=== PATIENT | female | born 1970 | race Caucasian/White ===

== ENCOUNTER 2016-12-06 11:09 | Outpatient (CLI) | payer BC ==
--- NOTE | 2016-12-06 17:32 | PET ---
PET CT: HISTORY: 46-year-old female with colorectal carcinoma, diagnosed in July 2016. Patient had surgery on 08/16/16 and two series of chemotherapy, last session on 11/24/16. Exam requested for restaging. TECHNIQUE: PET scanning with CT attenuation correction was performed from the base of the brain to the proximal thighs following the intravenous administration of 10 mCi F18-FDG in the right antecubital fossa. I maging was performed after an uptake interval of 55 minutes. COMPARISON: None. FINDINGS: There are multiple hypermetabolic foci in the liver with maximum SUV of 13.3 in the right lobe and 9 in the left lobe. Multiple pulmonary nodules are seen in the lungs on the CT scan used for attenuation correction. Mos t of these are less than 1.0 cm. The 1.0 cm nodule is in the left lower lobe and demonstrates hyperm etabolic activity with a SUV of 3.2. The remainder of the pulmonary nodules are not hypermetabolic. No joe hypermetabolism is seen in the neck, chest, abdomen, or pelvis. No hypermetabolic adrenal o r skeletal lesions are seen. There is physiologic activity in the GI and tracts, and the visualized portions of the brain. The CT scan used for attenuation correction demonstrates no evidence of pleural effusions or ascites . There are calcified gallstones and a left lower quadrant colostomy. IMPRESSION: Multiple liver and pulmonary metastases. POS: ROSIE
== END 2016-12-06 11:10 | disposition home or self-care (01) ==
LOC: PET 11:09
PROVIDERS: ATTEND Internal Medicine Hematology & Oncology
DX: C20 Malignant neoplasm of rectum (principal); C78.7 Secondary malignant neoplasm of liver and intrahepatic bile duct; C78.00 Secondary malignant neoplasm of unspecified lung
CPT/HCPCS: 78815; A9552

== ENCOUNTER 2017-04-13 07:48 | Outpatient (CLI) | payer BC ==
--- NOTE | 2017-04-13 11:52 | CT ---
CT OF THE ABDOMEN AND PELVIS WITH IV AND ENTERIC CONTRAST: HISTORY: History of sigmoid colon neoplasm. COMPARISON: CT images from a PET CT evaluation from the [facility], dated 12/06/2016. TECHNIQUE: Multiple CT images were obtained of the abdomen and pelvis with IV and enteric contrast. The patient has a history of a colostomy and port placement. The patient reportedly had prior CT evaluations in [place]. None of these comparisons are available. The patient is currently undergoing chemother apy. FINDINGS: There are bilateral lung base pulmonary nodules. One of the largest is seen within left lower lobe, on image 6 of series 2, measuring 1.5 cm. This lesion measured approximately 1 cm on the comparison PET CT evaluation. There is now an area of central cystic change seen within the nodule. An additio nal 8 mm pulmonary nodule is seen within the left lower lobe, where previously this measured 1 cm. T here is a 5 mm pulmonary nodule within the right lower lobe, which is stable. No new pulmonary nodul e is evident. There are numerous hypodense masses involving the liver, consistent with hepatic metastatic disease. The largest is seen within segment 6 of the right hepatic lobe, on image 25 of series 2, measuring 6 .7 x 4.9 cm. It is difficult to compare the size of the hepatic metastatic lesions due to the PET CT evaluation being without IV contrast and with associated beam hardening artifact. Numerous hepatic lesions appear slightly smaller than on the comparison noncontrast PET exam. The pancreas and spleen appear within normal limits. The adrenal glands appear within normal limits. No focal renal lesion is evident. There has been interval development of prominent pericolonic wall thickening involving the left lower quadrant ostomy, as well as portions of the descending colon. A mild amount of retained stool is se en within the transverse colon. The small bowel is of normal caliber. The bladder appears within no rmal limits. There is some wall thickening involving the superior aspect of Kendrick pouch, best see n on image 75 of series 2 and image 97 of the coronal series. There are some shotty appearing perire ctal lymph nodes present. There is some inflammatory type infiltration in the perirectal fat. There is some fluid and gas density seen within the expected excluded rectal vault. The sclerotic lesion involving the proximal left femur is stable. There is scattered degenerative an d osteoarthritic change. IMPRESSION: 1. The index nodule within the left lower lobe on the comparison PET CT has increased in size but no w has an area of central necrosis or cavitation. The additional left lower lobe pulmonary nodule has decreased in size, measuring 8.5 mm, where it previously measured 1 cm. The right lower lobe pulmon tawanna nodule is stable. It is difficult to compare the hepatic metastatic disease on this contrast enh anced exam to that of the noncontrast PET CT evaluation, but it appears that the hepatic metastatic d isease is slightly less prominent. Overall findings may reflect sequelae of response to therapy. Sh ort-term CT followup (1-2 months) may be helpful to confirm these findings. 2. Prominent wall thickening involving the left lower quadrant sigmoid end colostomy and descending colon is suspicious for colitis. 3. Prominent circumferential wall thickening involving the superior aspect of Kendrick pouch. This would be concerning for recurrent disease. Would recommend consideration for repeat PET CT evaluatio n of this region. Alternatively, a sigmoidoscopy may be helpful to evaluate the pouch. There is ghassan e fluid and gas accumulation within the rectal pouch, which could be related to exudate from the muco sa; however, discharge from recurrent mass cannot be entirely excluded. CODE T POS: ROSIE
[2017-04-13] MEDS ORDERED: Iopamidol 370 76% 100 ML VIAL ONE (13:00)
[2017-04-13] MEDS ORDERED: Iopamidol 370 76% 50 ML VIAL FS ONE (13:00)
== END 2017-04-13 07:49 | disposition home or self-care (01) ==
LOC: CT 07:48
PROVIDERS: ATTEND Internal Medicine Hematology & Oncology
DX: C18.7 Malignant neoplasm of sigmoid colon (principal); C78.6 Secondary malignant neoplasm of retroperitoneum and peritoneum; R91.8 Other nonspecific abnormal finding of lung field; Z98.890 Other specified postprocedural states
CPT/HCPCS: 74177

== ENCOUNTER 2017-06-08 08:15 | Outpatient (CLI) | payer BC ==
--- NOTE | 2017-06-08 12:01 | PET ---
PET CT: HISTORY: 47-year-old female with colorectal/sigmoid colon cancer. Last chemotherapy was in April 2017. Exam requested for restaging. TECHNIQUE: PET scanning with CT attenuation correction was performed from the base of the brain through the prox imal thighs following the intravenous administration of 11.7 mCi F18-FDG in the right antecubital fos sa. Imaging was performed after an uptake interval of 46 minutes. COMPARISON: PET CT dated 12/06/16. CORRELATION: CT abdomen and pelvis dated 04/13/17. FINDINGS: Multiple hypermetabolic foci in the liver are again noted with interval increase in number and size s jason the last exam. Multiple pulmonary nodules are again seen in the lungs on the CT scan used for attenuation correction . None of these demonstrate abnormal FDG localization. The largest of these in the left lower lobe pr eviously measured 1.0 cm and demonstrated FDG localization. This currently measures 1.5 cm, but demon strates no abnormal FDG localization. No joe hypermetabolism is seen in the neck, chest, abdomen, or pelvis. No hypermetabolic adrenal or skeletal lesions are identified. There is a segment of intense uptake in the superior aspect of the Kendrick's pouch in the pelvis wit h a SUV of 10. There is physiologic activity in the GI tract and visualized portions of the brain. The CT scan used for attenuation correction demonstrates no evidence of pleural effusions or ascites. The calcified gallstones and left lower quadrant colostomy are again seen. IMPRESSION: 1. Mixed response to therapy since 12/06/16. 2. Hypermetabolic activity in the superior aspect of Kendrick's pouch may represent recurrence. Endo scopic evaluation is recommended. POS: ROSIE
== END 2017-06-08 08:16 | disposition home or self-care (01) ==
LOC: PET 08:15
PROVIDERS: ATTEND Internal Medicine Hematology & Oncology
DX: C19 Malignant neoplasm of rectosigmoid junction (principal)
CPT/HCPCS: 78815; A9552

== ENCOUNTER 2017-08-04 00:10 | Inpatient (IN) | payer BC ==
[2017-08-04 01:04] LABS: #Lymphocytes 1.7 thou/uL (1.20-3.40); #Monocytes 0.3 thou/uL (0.11-0.59); #Neutrophils 10.1 thou/uL (1.40-6.50); %Eosinophils 0.2 % (0.0-10.0); %Lymphocytes 13.7 % (21.0-51.0); %Monocytes 2.7 % (0.0-10.0); %Neutrophils 83.4 % (42.0-75.0); Hemoglobin 11.5 g/dL (12.0-16.0); Mean Corpuscular HGB CONC 30.8 g/dL (32.0-36.0); Mean Corpuscular Hemoglobin 29.4 pg (27.0-31.0); Mean Corpuscular Volume 95.4 fl (81.0-99.0); Mean Platelet Volume 6.6 fL (7.4-10.4); Platelet Count 470 thou/uL (130-400); RBC Distribution Width 17.8 % (11.5-14.5); Red Blood Cell (RBC) Count 3.91 mill/uL (4.20-5.40); White Blood Cell (WBC) Count 12.1 thou/uL (4.8-10.8)
[2017-08-04 01:14] LABS: ALT (SGPT) 35 U/L (8-55); AST (SGOT) 79 U/L (5-34); Albumin 2.9 g/dL (3.5-5.0); Alkaline Phosphatase 207 U/L (40-150); Anion Gap 14 mmol/L (10-20); BUN (Urea Nitrogen) 14 mg/dL (7.0-18.7); Bilirubin, Total 0.4 mg/dL (0.2-1.2); Calc. Creatinine Clearance 0 mL/min (70-130); Carbon Dioxide 25 mmol/L (22-29); Chloride 103 mmol/L (98-107); Estimated GFR-MDRD 89; Globulin 5.2 g/dL (2.4-3.5); Glucose 133 mg/dL (70-105); Potassium 4.2 mmol/L (3.5-5.1); Protein, Total 8.1 g/dL (6.0-8.3); Sodium 138 mmol/L (136-145)
[2017-08-04 02:07] LABS: Bilirubin Negative (Negative); Blood, Urine Negative (Negative); Clarity CLEAR (Clear); Glucose, Urine (Dipstick) Negative (Negative); Leukocyte Small (Negative); Nitrite Negative (Negative); Protein, Urine (Dipstick) Negative (Neg-Trace); Specific Gravity, Urine 1.026 (1.002-1.036)
[2017-08-04 02:17] LABS: Bacteria/HPF None Seen HPF (None Seen); Hyaline Casts/LPF NONE SEEN LPF (0-3 Hyaline); Other Microscopic Description Less than 2 mL rec'd; RBC/HPF 0-3 HPF (0-3); Squamous Epithelial 0-3 HPF (0-3); WBC/HPF 0-3 HPF (0-3)
[2017-08-04] MEDS ORDERED: Piperacillin/Tazobactam 4.5 GM VIAL ONE (02:25)
[2017-08-04] MEDS ORDERED: Acetaminophen 325 MG TAB ONE (04:18)
[2017-08-04 04:56] LABS: Lactic Acid 2.1 mmol/L (0.5-2.2)
--- NOTE | 2017-08-04 07:57 | RAD ---
CHEST 2 VIEWS: HISTORY: Fever. On chemotherapy. COMPARISON: Chest radiograph 2017. FINDINGS: Port catheter tip in the superior SVC. There is a well-defined nodule in the left lower lobe measuri ng 14 mm and suggesting a metastatic focus. Smaller left lower lobe pulmonary nodule is present. Co ncern for possible developing nodules in the right upper lobe. No focal airspace consolidation, pneumothorax, or effusion. IMPRESSION: Findings concerning for worsening pulmonary metastatic disease. POS: RADHIKAH
--- NOTE | 2017-08-04 08:46 | CT ---
PRELIMINARY REPORT/[facility]/EMERGENTY AFTER-HOURS PROCEDURE CT Abdomen and Pelvis With Intravenous Contrast EXAM DATE/TIME: Exam ordered 08/04/2017 4:57 AM CLINICAL HISTORY: 47 years old, female; Signs and symptoms; Fever; Patient HX: 47 y/o f with colon cancer S/P tumor res ection undergoing chemotherapy presents with fever. She had a 103 temp monday and her cancer dr place d her on cipro. She spiked a fever againg yesterday and it has persisted today, measuring 100 at home. She does have associated generalized weakness in which her mother states she drifts "in and out" and is very loopy tonight. Also has back pain and possible flank pain. Has apt with urology for recurrent uti's tomorrow. Has colostomy bag, but has been passing feces through her rectum also. Only has mild associated abdominal pain currently. A&o x3. TECHNIQUE: Axial computed tomography images of the abdomen and pelvis with intravenous contrast. Coronal reforma tted images were created and reviewed. COMPARISON: No relevant prior studies available. FINDINGS: Lung bases: There are diffuse lung metastases. ABDOMEN: Liver: There are diffuse metastases throughout the liver. Gallbladder and bile ducts: There is cholelithiasis with nonspecific gallbladder wall haziness. No du ctal dilation. Pancreas: The pancreas appears normal. No ductal dilation. Spleen: The spleen is normal. Adrenals: The adrenal glands are normal. Kidneys and ureters: The kidneys appear normal. No hydronephrosis. Stomach and bowel: The duodenum is unremarkable. There is a LEFT lower quadrant colostomy. No obstruction. No mucosal thickening. PELVIS: Appendix: No findings to suggest acute appendicitis. Bladder: The bladder is normal. Reproductive: The uterus is normal. ABDOMEN and PELVIS: Intraperitoneal space: Normal. No free air. No significant fluid collection. Bones/joints: No acute fracture. No dislocation. Soft tissues: Normal. Vasculature: Normal. No abdominal aortic aneurysm. Lymph nodes: Normal. No enlarged lymph nodes. IMPRESSION: 1. There is cholelithiasis with nonspecific gallbladder wall haziness. If acute cholecystitis suspect ed an ultrasound may be performed for further evaluation. 2. Diffuse liver and lung metastases. Thank you for allowing us to participate in the care of your patient. Dictated and Authenticated by: Kevin Liriano MD 08/04/2017 5:30 AM Central Time ([place] & [place]) FINAL REPORT CT ABDOMEN AND PELVIS WITH IV AND ORAL CONTRAST: DATE: 08/04/17. TIME: Performed on an emergency basis at 0501 hours. HISTORY: Worsening abdominal pain. Metastatic colon cancer. COMPARISON: 04/13/17. FINDINGS: Findings agree with the preliminary report by Dr. Porter from [facility]. Inflammation of the gallbladder is suspected with gallstones confirmed. Clinical correlation regarding other signs and symptoms of acute cholecystitis is required. Postoperative changes are again demonstrate. There has been significant worsening of metastatic disease of the lung bases and liver. POS: ROSIE
[2017-08-04] MEDS ORDERED: FLUoxetine HCl 20 MG CAP PO SCH (09:00)
[2017-08-04] MEDS: cefTRIAXone\\ROCEPHIN 1 GM in Sodium Chloride 0.9% 100 ML IVPB SCH (09:56)
[2017-08-04] MEDS: Enoxaparin Sodium 30 MG/0.3 ML SYRINGE SC SCH (09:57)
[2017-08-04] MEDS: ALPRAZolam 1 MG TAB PO SCH ×2 (10:07→21:43)
[2017-08-04 10:08] VITALS: BMI 26.6
[2017-08-04] MEDS ORDERED: ISOVUE-370 76%-LOCM 1 ML ONE (11:13)
--- NOTE | 2017-08-04 14:25 | PDOC.PN ---
- Subjective Encounter Start Date: 08/04/17 Encounter Start Time: 14:22 Ms. Lugo was seen in follow-up of fever. She currently admits to some mild abdominal discomfort. - Objective Resuscitation Status: Resuscitation Status FULL:Full Resuscitation MAR Reviewed: Yes Vital Signs & Weight: Vital Signs (12 hours) Temp Pulse Resp BP Pulse Ox 08/04/17 11:45 98.4 F 89 20 95/53 L 93 L 08/04/17 10:34 99.0 F 94 20 96 08/04/17 09:30 99.0 F 94 20 98/62 96 Weight Weight 160 lb 8 oz Result Diagrams: 08/04/17 00:43 08/04/17 00:43 Phys Exam - Physical Examination HEENT: PERRLA Respiratory: no wheezing, no rales, no rhonchi, clear to auscultation bilateral Cardiovascular: RRR, no significant murmur, no rub Gastrointestinal: soft + mild right upper quandrant tenderness Musculoskeletal: no edema, pulses present Neurological: non-focal Dx/Plan (1) Fever Code(s): R50.9 - FEVER, UNSPECIFIED Status: Acute (2) Colon cancer metastasized to liver Code(s): C18.9 - MALIGNANT NEOPLASM OF COLON, UNSPECIFIED; C78.7 - SECONDARY MALIG NEOPLASM OF LIVER AND INTRAHEPATIC BILE DUCT Status: Acute (3) Bipolar disorder Code(s): F31.9 - BIPOLAR DISORDER, UNSPECIFIED Status: Acute - Plan * Fever- ? etiology- discussed with Oncology and General Surgery- CT scan findings were noted, and will consult Surgery to evaluate for acute cholecystitis. * Colon cancer stage 4- she is being actively treated * Will continue Rocephin in the interim
--- NOTE | 2017-08-04 16:03 | CON ---
DATE OF CONSULTATION: 08/04/2017 REASON FOR CONSULTATION: Colon cancer. HISTORY OF PRESENT ILLNESS: Ms. Lugo is a pleasant 47-year-old female with metastatic colon cancer w ho over the last 3 weeks has been struggling with a fever as high as 103. She had some urinary compl aints initially and was treated with Cipro. However, all her urine cultures were negative. She stat es that she has seen stool in her urine. There was concern that her chemotherapy regimen which inclu leny Avastin may have caused a fistula. She had an appointment with Dr. Shah this morning for furth er evaluation. Over the past week, she has had persistent temperature of 103. Last night, she had s ome confusion and significant weakness and presented to the emergency room for evaluation. She had a n abdominal and pelvis CT scan performed which showed cholelithiasis with an inflamed gallbladder and gallstones. She had a worsening metastatic disease consistent with her recent elevation in her CEA. Dr. Shah did see the patient this morning, he performed pelvic exam on her and feels that this is unlikely to be a urinary related. He states there may be a colovaginal fistula which would explain perhaps a stool in her urine as well as possible mucus from her rectum despite a diversion. The sonu ent has been started on antibiotics and IV fluids and feels much better since admission. PAST MEDICAL HISTORY: 1. Stage IV colon adenocarcinoma. 2. Lung and liver metastasis. 3. Obsessive compulsive disorder. 4. Anxiety. PAST SURGICAL HISTORY: 1. Radical ovarian cancer debulking with a supracervical hysterectomy, BSO, and omentectomy. 2. Retrosigmoid colon resection with colostomy in 08/2016. ALLERGIES: No known drug allergies. HOME MEDICATIONS: 1. Alprazolam 1 mg t.i.d. 2. Citalopram 20 mg daily. 3. Zofran p.r.n. 4. Temazepam 15 mg at bedtime. 5. Tramadol 50 mg p.r.n. FAMILY HISTORY: She has multiple family members with colon cancer including her three cousins and an uncle. SOCIAL HISTORY: , has no children, lives with her mother. Nonsmoker. No alcohol or illicit drug use. REVIEW OF SYSTEMS: Constitutional: Positive for fever, chills, no night sweats. Eyes: No blurred or double vision. ENT: No pain, hoarseness, sore throat, or dysphagia. Cardiovascular: No chest p ain, palpitations or syncope. Respiratory: No shortness of breath, dyspnea on exertion or orthopnea . Gastrointestinal: No nausea, vomiting, diarrhea, constipation, no abdominal pain. Genitourinary: No dysuria or hematuria. Musculoskeletal: No joint or back pain. Skin: No rash or pruritus. He matologic: No bleeding, bruising or clotting. Neurologic: Positive for weakness, no headache, numb ness, tingling or seizure activity. Psychiatric: Positive for anxiety and depression. PHYSICAL EXAMINATION: VITAL SIGNS: Temperature is 98.4, pulse is 89, respiratory rate 20, BP is 95/53. She is 93% on room air. GENERAL: This is a well-developed, well-nourished female in no acute distress. HEENT: Normocephalic, atraumatic. Pupils equal and reactive to light. NECK: Supple. CARDIOVASCULAR: Regular rate and rhythm. She does have a 3/6 murmur. LUNGS: Clear. ABDOMEN: Soft, nontender, bowel sounds are positive. She has a colostomy in place. EXTREMITIES: No clubbing, cyanosis or edema. SKIN: No rash. HEMATOLOGIC: No petechia or purpura. NEUROLOGICAL: Nonfocal. PSYCHIATRIC: The patient is alert and oriented and appropriate. PERTINENT LABORATORY AND X-RAYS: Current WBCs are 12.1, hemoglobin 11.5, hematocrit 37.3, platelet c ount 470,000. She has got 84% neutrophils, 14% lymphocytes. Sodium is 138, potassium 4.2, chloride 103, CO2 is 25, BUN is 14, creatinine 0.7. Lactic acid is 2.1, calcium 9, total bilirubin is 0.4, T is 79, ALT 35, alkaline phosphatase is 207. Serum total protein is 8.1, albumin 2.9, globulin 5.2. Urine is negative for bacteria. Radiology per HPI. IMPRESSION: 1. Metastatic colon cancer, on Folfox and Avastin chemotherapy. 2. Cholelithiasis. 3. Possible colovaginal fistula. 4. Fever, query cause. DISCUSSION: Dr. Shah has seen the patient and ruled out a colovesicular fistula. The patient scott leyva has an inflamed gallbladder on CT scan. General Surgery will be consulted for further evaluation as this may be the source of her fever. If she does have a possible colovaginal fistula, then that will be pursued after the gallbladder issue has been evaluated. Thank you for the consult. We will follow her closely.
--- NOTE | 2017-08-04 17:06 | CON ---
DATE OF CONSULTATION: 08/04/2017 HISTORY OF PRESENT ILLNESS: This is a 47-year-old white female I was asked to see today by the [facility]. She was actually scheduled to see me in my office today for recurrent UTIs and the possib ility of urinary tract fistula, but she was admitted last night with fever at home to 103 and not a h igh fever in the ER, about mild low-grade temperature in the ER, but slightly elevated white count. She was thought to be having urinary tract infections and there was a concern that she may have had a fistula that is why she was going to see me and that is why we have been consulted to see her now. On talking with her and her mom, it sounds like her problems with urinary tract started in March, t which point she would have fever and then be told she had a urinary tract infection. On asking her specifically, she would not have dysuria, she would not have flank pain, she would not have frequenc y, urgency. She would not have blood in her urine. We have not been able to find any documented uri nary tract infections through [facility] and most of the urinalysis that she has given there have als o been normal and not consistent with an infection. On talking with Dr. Pendleton and with [place], the [employer] [employer] with the Oncology group, it is possible that she sometimes has been treated with antibiotics without doing cultures because she is not always in town or available to come in, so it i s certainly possible that she may have had some positive cultures, but we do not have any to document currently. In terms of the concern about a fistula, her mom noticed kind of a mucousy substance moise t almost appeared to her like feces on her underwear and it was felt that she may have developed fist ulas into the bladder. She, however, has not ever experienced pneumaturia and she has not had any pa rticulate matter come out while she is urinating. She is not sure if she has had any vaginal drainag e or discharge and she is not sure if she has lost any contents from her rectum and she has left-side d colostomy for almost a year now, but still has a distal rectum. Her other history as it relates to all this is metastatic colon cancer and this was diagnosed about a year or so ago up in the [facility] which he had surgery done, there was a thought that maybe it was ovarian cancer, but it was all colon cancer according to Dr. Pendleton. She had an oophorectomy on the left and she had a colect anny and colostomy and now she came back here and she was getting chemotherapy and unfortunately it is metastatic with Pulmonary mets and hepatic mets that I guess have already been documented, but certa inly have been documented or CAT scan that she had when she came in. That CAT scan was a noncontrast CAT scan and I have reviewed that CAT scan and apart from the liver and the pulmonary findings, it a lso showed normal appearing kidneys, no evidence of renal mass, cyst or stone. No evidence of hydron ephrosis, no evidence of ureteral stones. The bladder was free of stones. There is no air in the bl adder and there is nothing looking at it or on the report that would suggest a fistula to the bladder . She still has a uterus and there is just a little tiny spec of air between the bladder and the rec manolo and she still does have a rectum and there is probably fluid and perhaps some mucus debris that i s in the rectum. She currently does not have any dysuria, any hematuria or urinary frequency. Her u rinalysis currently is completely normal. She was on Cipro when she came in. She did have a urine c ulture done on 06/27/2017 and that culture was negative. I do not think she had a urine culture done last week when she started the Cipro. She had a urine culture done a year ago that was also negativ e. Urinalysis from last month was also negative. PAST MEDICAL HISTORY: Apart from the colon cancer includes a history of some anxiety and depression. PAST SURGICAL HISTORY: Includes colectomy and colostomy. LABORATORY DATA: Her white count is 12.1, hemoglobin is 11.5. Her creatinine is 0.7. Lactic acid w as 2.8 yesterday, 2.1 today. She has elevated alkaline phosphatase, slightly elevated liver enzymes. PHYSICAL EXAMINATION: ABDOMEN: She does not have flank tenderness. Her abdomen is currently soft. She has left-sided col ostomy. She has no palpable mass around her bladder on bimanual exam. On the vaginal exam, she has a cervix and then just posterior to the cervix an area of induration about the size of the tip of my index finger that feels like there may be a noguera fistula just in this region, it is certainly possi ble, however, there is not any significant amount of blood or pus or tissue or fecal material in her vagina. Her rectal exam was attempted. She is very uncomfortable in doing this and I could not know if there is a mass or problem there. She was a little incontinent of mucousy liquid after doing a r ectal exam. IMPRESSION: 1. Possible urinary tract infections, although none are documented in currently. Her urine is clear and her culture from last month was negative and her culture from this visit is negative. It is unc ertain as to whether or not she has had infections in the past that she does not have any cultures to prove them and on talking with her most of the time, she has been treated for infection has been rel ated to a fever rather than to lower urinary tract symptoms. 2. Fever during this admission which is unclear as to what that to cause from it does not appear to be urinary tract currently unless something does end up growing out on the late culture from the urin e, but the initial culture is no growth. There may be another source for this infection. She does h ave a line in for chemotherapy. 3. Possibility of a colovesical fistula and there was no evidence of that on her exam or on her CAT scan and by history, that is not suggestive of that currently. It would best be diagnosed with a cys toscopy, which we could do on an outpatient basis if it was necessary. 4. Possible colovaginal fistula, certainly it is a possibility she does have some findings on her bi manual exam. I discussed this with Dr. Fernandes probably reasonable perhaps to get one of the surgeons to see her regarding this to see what their thoughts are. I do know that this would actuall y have anything to do with her fever; however, but she is on a chemotherapeutic agent that has been a ssociated with fistula, so it is certainly possible. I guess the last possibility is what she is rec eiving to be a fistula in this mucousy tissue that was noted could even be coming from her rectum jus t from a defunctionalized rectum after colostomy. In any event, at this point, I do not see any need for emergent intervention emergent urologic intervention. I let Dr. Suresh is covering this week a nd noted that she is in the hospital, but I do not perceive that he will be needed to see her.
[2017-08-04] MEDS ORDERED: traMADol HCl 50 MG TAB PO PRN (18:27)
[2017-08-04] MEDS: Acetaminophen 500 MG TAB PO PRN (18:40)
[2017-08-04] MEDS: Citalopram 20 MG TAB PO SCH (21:42)
--- NOTE | 2017-08-05 01:12 | CON ---
DATE OF CONSULTATION: 08/04/2017 REASON FOR CONSULTATION: Cholelithiasis, possible cholecystitis. HISTORY: Ms. Lugo is a 47-year-old woman with metastatic colon cancer. She has multiple hepatic met astases as well as some pulmonary mets. She states that she has been having what she thought were ho t flashes for the past month or so, and then, in early July, had some fevers, but was, otherwise, feel ing well. Over the weekend, she had a high fever up to 103, and the following day, had a low-grade f ever to about 100. She contacted the [facility] and was started on Cipro due to a history of mult iple UTIs in the past. She is currently on chemotherapy, but is not neutropenic. Over the next few days; however, she continued to decline in terms of her overall well-being and energy and was becomin g confused, so her family brought her into the emergency room and she was admitted. During her luis alfredo p, she did undergo a CT of the abdomen and pelvis. Apparently, she was complaining of some abdominal pain at that time, although she does not remember this and also had some nausea. The patient states that generally she does not have any problems eating and can eat fried food and greasy food without any problems. She denies any changes in her bowel habits. Her colostomy is functioning well, and sh e denies any nausea currently. She states that she does not have any abdominal pain. Previously, wh en she came into the emergency room, her family stated that she was tender in the left lower abdomen around the site of her colostomy. The patient's family reports that there have been occasional streaks of brownish mucousy material in her depends, they are uncertain of the origin of this, whether it is vaginal, urinary, or rectal. Th e patient also states that she passed a small amount of stool, but again she is unsure where this cam e from. PAST MEDICAL HISTORY: Metastatic rectal cancer. She underwent a total hysterectomy, oophorectomy, a nd sigmoid colon resection en bloc by Dr. Elena Quinn in [place], as initially she presented with a large pelvic mass, which was felt to be ovarian cancer; however, the final pathology revealed a colo rectal origin. She has an end colostomy. She states that she has had multiple UTIs over the past fe w months with about 5 bladder infections since the beginning of this year; however, Dr. Shah has ex amined her and does not feel that she has a bladder infection at this time. She does have chronic ba ck pain, which she states is about the same as usual. PAST SURGICAL HISTORY: Total hysterectomy, BSO, rectosigmoid resection with end colostomy, omentecto my, all in 2017. ALLERGIES: No known drug allergies. OUTPATIENT MEDICATIONS: Include alprazolam, citalopram, temazepam, p.r.n. tramadol, and Zofran. She does have a fairly strong family history of colon cancer and a few second- and third-degree cousins. SOCIAL HISTORY: She does not smoke, drink, or use illicit drugs. She currently lives with her carlito chou. REVIEW OF SYSTEMS: Ten system review of systems is negative except per HPI. PHYSICAL EXAMINATION: VITAL SIGNS: T-max 100.5, heart rate 96, respirations 18, 92% saturated on room air, blood pressure 111/66. GENERAL: Reveals an ill-appearing woman in no acute distress. She is tired and has difficulty recal ling recent events, but is alert and oriented. HEENT: Unremarkable. NECK: Supple, without lymphadenopathy or thyroid nodules. HEART: Slightly tachycardic, but regular. She does have a systolic murmur, which she states she has not been told she has before. LUNGS: Clear to auscultation bilaterally. ABDOMEN: Soft and nondistended. Her ostomy is functioning and does not have a large parastomal colten ia, although the pant is not taken down. She has mild diffuse tenderness to palpation, but no focal findings. She has a healed midline incision without palpable hernias. EXTREMITIES: Warm and well perfused with normal pedal pulses. She does have some mild edema. NEUROLOGIC: No focal deficits. PSYCHIATRIC: Alert and oriented. LABORATORY DATA: White count is elevated at 12.1, hematocrit is 37.3, and platelets are 470. Electr olytes are unremarkable. AST is 79, alkaline phosphatase is 207. Lactate is 2.8. UA showed trace k etones and small leukocyte esterase, but cultures thus far is no growth. ASSESSMENT: Fever of unknown origin. The patient has a known history of cholelithiasis, but does no t have any biliary colic symptoms. She apparently had some left-sided abdominal pain at the time of her admission and has some mild diffuse abdominal tenderness on exam, but nothing focal. She has had a fairly massive abdominal operation and may very well have significant scar tissue, which would chad e laparoscopic cholecystectomy somewhat more hazardous. Since she does not have any biliary colic sy mptoms, I favor further investigation of the gallbladder with ultrasound and HIDA scan before conside ring laparoscopic cholecystectomy, and clinically, she does not appear to have acute cholecystitis. I am concerned about her heart murmur and I have ordered an echocardiogram. She states that she has never been told before that she has a heart murmur and endocarditis is a possibility. I will follow up with her tomorrow after her gallbladder testing, but at this point, I do not plan a laparoscopic c holecystectomy based on the current evidence.
[2017-08-05 05:05] LABS: #Eosinphils 0.1 thou/uL (0.0-0.7); #Lymphocytes 1.4 thou/uL (1.20-3.40); #Monocytes 0.2 thou/uL (0.11-0.59); #Neutrophils 9.4 thou/uL (1.40-6.50); %Eosinophils 0.9 % (0.0-10.0); %Lymphocytes 12.8 % (21.0-51.0); %Monocytes 2.1 % (0.0-10.0); %Neutrophils 84.2 % (42.0-75.0); Mean Corpuscular Hemoglobin 29.5 pg (27.0-31.0); Mean Corpuscular Volume 95.3 fl (81.0-99.0); Mean Platelet Volume 6.7 fL (7.4-10.4); Platelet Count 334 thou/uL (130-400); RBC Distribution Width 17.3 % (11.5-14.5); Red Blood Cell (RBC) Count 3.38 mill/uL (4.20-5.40); White Blood Cell (WBC) Count 11.2 thou/uL (4.8-10.8)
[2017-08-05 05:27] LABS: Anion Gap 7 mmol/L (10-20); BUN (Urea Nitrogen) 11 mg/dL (7.0-18.7); Calc. Creatinine Clearance 150 mL/min (70-130); Calcium 8.9 mg/dL (7.8-10.44); Carbon Dioxide 29 mmol/L (22-29); Chloride 104 mmol/L (98-107); Estimated GFR-MDRD Greater than 90; Glucose 90 mg/dL (70-105); Potassium 3.9 mmol/L (3.5-5.1); Sodium 136 mmol/L (136-145)
[2017-08-05] MEDS: ALPRAZolam 1 MG TAB PO SCH ×2 (09:00→20:54)
[2017-08-05] MEDS: Enoxaparin Sodium 30 MG/0.3 ML SYRINGE SC SCH (09:29)
--- NOTE | 2017-08-05 10:35 | ULT ---
GALLBLADDER ULTRASOUND: HISTORY: CT done yesterday shows liver mass. Evaluate for cholecystitis. COMPARISON: None. TECHNIQUE: Utilizing a multihertz transducer, sonographic imaging of the right upper quadrant is performed in th e longitudinal and transverse plane. FINDINGS: There is diffuse heterogeneity throughout the liver compatible with known multifocal metastases. The right hepatic lobe measures 18.3 cm. Main portal vein is patent. Appropriate directional flow. There is sonographic evidence of cholelithiasis. Gallbladder wall thickness is 0.3 cm. No definite pericholecystic fluid. Negative Miller's sign. Pancreas is not well visualized. Right kidney: No hydronephrosis. The right kidney measures 6.1 x 5.4 x 10.7 cm. IMPRESSION: 1. Sonographic evidence of cholelithiasis without definite sonographic evidence of cholecystitis. 2. Extensive heterogeneity throughout the liver compatible with history of hepatic metastases. POS: ROSIE
[2017-08-05] MEDS: cefTRIAXone\\ROCEPHIN 1 GM in Sodium Chloride 0.9% 100 ML IVPB SCH ×2 (13:50→13:57)
--- NOTE | 2017-08-05 14:38 | NM ---
NUCLEAR MEDICINE HIDA SCAN AND EF: HISTORY: Evaluate for cholecystitis. Gallbladder ultrasound demonstrates cholelithiasis. TECHNIQUE: The patient was administered 5.5 mCi of Technetium 99m mebrofenin intravenously. Gallbladder ejectio n fraction was determined after the patient was administered 1.4 mcg of CCK intravenously. The patie nt was also pretreated with 1.4 mGy. FINDINGS: Uptake of the radiotracer is noted by the hepatic parenchyma. There is passage of radiotracer from t he common bile duct into the small bowel loops. There is localization or radiotracer into the gallbl adder. Gallbladder ejection fraction is 66 minutes. IMPRESSION: 1. No scintigraphic evidence of acute cholecystitis. 2. Ejection fraction is 66%. POS: ROSIE
[2017-08-05] MEDS ORDERED: Sodium Chloride 0.9% 1,000 ML IV SCH (15:45)
--- NOTE | 2017-08-05 15:47 | PDOC.PN ---
- Subjective Encounter Start Date: 08/05/17 Encounter Start Time: 15:49 Patient seen and examined for fever and abdominal pain. Feels better now but still has some RUQ discomfort. No acute events overnight. - Objective Resuscitation Status: Resuscitation Status FULL:Full Resuscitation MAR Reviewed: Yes Vital Signs & Weight: Vital Signs (12 hours) Temp Pulse Resp BP Pulse Ox 08/05/17 08:00 98.9 F 102 H 18 108/64 92 L 08/05/17 04:47 98.8 F 97 18 108/61 97 Weight Weight 160 lb 8 oz I&O: 08/04/17 08/05/17 08/06/17 06:59 06:59 06:59 Intake Total 850 Balance 850 Result Diagrams: 08/05/17 04:45 08/05/17 04:45 Phys Exam - Physical Examination Constitutional: NAD HEENT: PERRLA, moist MMs, sclera anicteric, oral pharynx no lesions Neck: no JVD, supple, full ROM Respiratory: no wheezing, no rales, no rhonchi, clear to auscultation bilateral Cardiovascular: RRR, no significant murmur, no rub Gastrointestinal: soft, no distention, positive bowel sounds RUQ tenderness Musculoskeletal: no edema, pulses present Neurological: moves all 4 limbs Psychiatric: normal affect, A&O x 3 Skin: no rash, normal turgor Dx/Plan (1) Fever Code(s): R50.9 - FEVER, UNSPECIFIED Status: Acute Qualifiers: Fever type: unspecified Qualified Code(s): R50.9 - Fever, unspecified Comment: Stable, afebrile. Cultures negative till date. (2) Bipolar disorder Code(s): F31.9 - BIPOLAR DISORDER, UNSPECIFIED Status: Acute Qualifiers: Active/Remission status: remission status unspecified Qualified Code(s): F31.9 - Bipolar disorder, unspecified (3) Colon cancer metastasized to liver Code(s): C18.9 - MALIGNANT NEOPLASM OF COLON, UNSPECIFIED; C78.7 - SECONDARY MALIG NEOPLASM OF LIVER AND INTRAHEPATIC BILE DUCT Status: Chronic - Plan cont current plan of care, continue antibiotics, out of bed/ambulate, DVT proph w/lovenox US showed cholelithasis but no cholecystitis. f/u ECHO and HIDA scan report Continue IV antibiotics. Give bolus of 1L NS. Continue DVT prophylaxis with Lovenox. f/u Surgery recommendations. Review of Systems - Medications/Allergies Allergies/Adverse Reactions: Allergies Allergy/AdvReac Type Severity Reaction Status Date / Time No Known Drug Allergies Allergy Verified 08/04/17 10:18 Medications: Current Medications Acetaminophen (Tylenol) 1,000 mg PO Q6HR PRN PRN Reason: Pain Last Admin: 08/04/17 18:40 Dose: 1,000 mg Alprazolam (Xanax) 1 mg PO BID [facility] Last Admin: 08/05/17 09:00 Dose: Not Given Citalopram Hydrobromide (Celexa) 20 mg PO HS [facility] Last Admin: 08/04/17 21:42 Dose: 20 mg Enoxaparin Sodium (Lovenox) 30 mg SC 0900 [facility] Last Admin: 08/05/17 09:29 Dose: Not Given Ceftriaxone Sodium 1 gm/ (Sodium Chloride) 100 mls @ 200 mls/hr IVPB Q24HR [facility] Last Admin: 08/05/17 13:57 Dose: 100 mls Tramadol HCl (Ultram) 50 mg PO QIDPRN PRN PRN Reason: Pain
--- NOTE | 2017-08-05 18:45 | PDOC.GSPN ---
Surgery Progress Note: Subj - Subjective Narrative: Feels much better than yesterday. No abd pain or nausea with HIDA scan/ CCK. U/S unremarkable except gallstones. HIDA normal filling, normal EF. Abd soft minimal lower abd tenderness. A/P) Cholelithiasis; likely asymptomatic. No evidence of cholecystitis on exam, U/S, or HIDA and no biliary colic symptoms. In my opinion, fever very unlikely to be due to gallbladder and risks of lap nahun outweigh benefits at this time. Signing off, please call if conditions warrant. Surgery Progress Note: Obj - Vital signs Vital signs: Vital Signs - Most Recent Temp Pulse Resp BP Pulse Ox 98.9 F 102 H 18 108/64 92 L 08/05/17 08:00 08/05/17 08:00 08/05/17 08:00 08/05/17 08:00 08/05/17 08:00 Surgery Progress Note: Results - Labs Result Diagrams: 08/05/17 04:45 08/05/17 04:45
[2017-08-05] MEDS: Citalopram 20 MG TAB PO SCH (20:37)
[2017-08-05] MEDS: Acetaminophen 500 MG TAB PO PRN (20:37)
[2017-08-06 05:46] LABS: Anion Gap 10 mmol/L (10-20); BUN (Urea Nitrogen) 9 mg/dL (7.0-18.7); Calc. Creatinine Clearance 156 mL/min (70-130); Calcium 8.5 mg/dL (7.8-10.44); Carbon Dioxide 26 mmol/L (22-29); Chloride 105 mmol/L (98-107); Estimated GFR-MDRD Greater than 90; Glucose 100 mg/dL (70-105); Potassium 3.6 mmol/L (3.5-5.1); Sodium 137 mmol/L (136-145)
[2017-08-06 07:07] LABS: Band 4 % (5-11); Hemoglobin 9.1 g/dL (12.0-16.0); Lymphocytes 16 % (21-51); MDiff Complete? YES; Mean Corpuscular HGB CONC 30.2 g/dL (32.0-36.0); Mean Corpuscular Hemoglobin 28.8 pg (27.0-31.0); Mean Corpuscular Volume 95.6 fl (81.0-99.0); Mean Platelet Volume 6.8 fL (7.4-10.4); Monocytes 4 % (0-10); Neutrophil 76 % (42-75); Platelet Count 311 thou/uL (130-400); RBC Distribution Width 17.7 % (11.5-14.5); Red Blood Cell (RBC) Count 3.17 mill/uL (4.20-5.40); White Blood Cell (WBC) Count 8.7 thou/uL (4.8-10.8)
[2017-08-06] MEDS: ALPRAZolam 0.5 MG TAB PO SCH ×2 (09:05→22:10)
[2017-08-06] MEDS: Enoxaparin Sodium 30 MG/0.3 ML SYRINGE SC SCH (09:05)
[2017-08-06] MEDS: Acetaminophen 500 MG TAB PO PRN ×2 (09:58→18:44)
--- NOTE | 2017-08-06 13:09 | PDOC.PN ---
- Subjective Encounter Start Date: 08/06/17 Encounter Start Time: 13:11 Patient seen and admitted for fever of unclear origin. Abd US, HIDA negative for Acute cholecystitis. TTE showed sclerotic aortic valve but no vegetations. Had low grade fever overnight w diaphoresis. - Objective Resuscitation Status: Resuscitation Status FULL:Full Resuscitation MAR Reviewed: Yes Vital Signs & Weight: Vital Signs (12 hours) Temp Pulse Resp BP Pulse Ox 08/06/17 12:00 98.5 F 72 22 H 110/68 08/06/17 10:00 100.1 F H 08/06/17 08:00 99.2 F 94 24 H 107/62 96 Weight Weight 160 lb 8 oz I&O: 08/05/17 08/06/17 08/07/17 06:59 06:59 06:59 Intake Total 850 1250 Balance 850 1250 Result Diagrams: 08/06/17 05:10 08/06/17 05:10 Dx/Plan (1) Fever Code(s): R50.9 - FEVER, UNSPECIFIED Status: Acute Qualifiers: Fever type: unspecified Qualified Code(s): R50.9 - Fever, unspecified Comment: Clinically stable. Unclear origin. HIDA negative for cholecystitis. ? neoplasm related. Had low grade fever with diaphoresis overnight. Cultures negative till date. Will repeat cultures, get a procalcitonin level and consult ID. Continue current antibiotic. (2) Bipolar disorder Code(s): F31.9 - BIPOLAR DISORDER, UNSPECIFIED Status: Chronic Qualifiers: Active/Remission status: remission status unspecified Qualified Code(s): F31.9 - Bipolar disorder, unspecified (3) Colon cancer metastasized to liver Code(s): C18.9 - MALIGNANT NEOPLASM OF COLON, UNSPECIFIED; C78.7 - SECONDARY MALIG NEOPLASM OF LIVER AND INTRAHEPATIC BILE DUCT Status: Chronic - Plan cont current plan of care, plan discussed w/ family, continue antibiotics, out of bed/ambulate, DVT proph w/lovenox * . Review of Systems - Review of Systems Constitutional: fever, sweats - Medications/Allergies Allergies/Adverse Reactions: Allergies Allergy/AdvReac Type Severity Reaction Status Date / Time No Known Drug Allergies Allergy Verified 08/04/17 10:18 Medications: Current Medications Acetaminophen (Tylenol) 1,000 mg PO Q6HR PRN PRN Reason: Pain Last Admin: 05/27/18 09:58 Dose: 1,000 mg Alprazolam (Xanax) 1 mg PO BID [facility] Last Admin: 08/06/17 09:05 Dose: Not Given Citalopram Hydrobromide (Celexa) 20 mg PO HS [facility] Last Admin: 08/05/17 20:37 Dose: 20 mg Enoxaparin Sodium (Lovenox) 30 mg SC 0900 [facility] Last Admin: 08/06/17 09:05 Dose: Not Given Ceftriaxone Sodium 1 gm/ (Sodium Chloride) 100 mls @ 200 mls/hr IVPB Q24HR [facility] Last Admin: 08/05/17 13:57 Dose: 100 mls Sodium Chloride (Flush - Normal Saline) 10 ml IVF Q12HR [facility] Last Admin: 08/06/17 09:05 Dose: 10 ml Sodium Chloride (Flush - Normal Saline) 10 ml IVF PRN PRN PRN Reason: Saline Flush Tramadol HCl (Ultram) 50 mg PO QIDPRN PRN PRN Reason: Pain
[2017-08-06] MEDS: cefTRIAXone\\ROCEPHIN 1 GM in Sodium Chloride 0.9% 100 ML IVPB SCH (14:39)
--- NOTE | 2017-08-06 20:00 | CON ---
DATE OF CONSULTATION: 08/06/2017 REASON FOR CONSULTATION: Fever. HISTORY OF PRESENT ILLNESS: A 47-year-old patient who has a diagnosis of metastatic colon cancer, initially identified in [place], [place] when she presented with back pain and was found to have colon cancer. She underwent surgical resection with colostomy and Kendrick's pouch. She was noted to have lung and liver involvement by metastatic colon cancer and eventually she started treatment here in the area where she moved back from [place] to be with family members. The patient is currently living with her mother and stepfather and has been receiving chemotherapy for metastatic colon cancer for the past few months, coordinated by Dr. Pendleton. One of the chemo agents is Avastin, but she does not know the other chemotherapeutic agents name. She was in her usual state until about a month before admission when she developed a temperature up to 103. She was given the oral ciprofloxacin and persisted with fever and therefore was admitted for evaluation. She developed some weakness in a little bit of confusional state. No headaches, visual symptoms, sore throat, odynophagia, or dysphagia. She had finished a dental work with a crown placed about 2 weeks before admission. No neck pain. She has quite intense back pain, which she refers to for the past few weeks. She cannot specify any particular site, it hurts all the way from the lumbosacral spine to the cervical spine and she rates it at 9/10. No cough or sputum production or chest pain. She has right upper quadrant abdominal tenderness. Colostomy bag has been working properly. She has no genitourinary symptoms. No lower extremity or upper extremity problems. No neurological symptoms except for mild confusional state, which has resolved. MEDICAL HISTORY: Gallstones, metastatic colon cancer to liver and lung under chemotherapy for the past few months, port placement in left subclavian region for the past few months, partial colectomy in [place], [place] with Kendrick' s pouch and colostomy. SOCIAL HISTORY: Never smoker, living in [place] with mother. ALLERGIES: None. CURRENT MEDICATION LIST: Tylenol, Xanax, ceftriaxone, Celexa, Lovenox, tramadol. FAMILY HISTORY: Colon cancer and some distant relatives obesity. PHYSICAL EXAMINATION: VITAL SIGNS: T-max 100.5. She is currently 98.5, blood pressure 110/68, pulse 72, respirations 22, O2 sat 96%. SKIN: Shows the colostomy with the usual appearance. PICC access to the left subclavian port. She is voiding spontaneously. No other areas of skin breakdown. No lymphadenopathy. HEENT: Ocular movements are conjugate. Sclerae white. Pupils are equal, conjunctivae normal. Numerous teeth in place with no significant findings in the oral cavity. NECK: Supple. No jugular venous distention or carotid bruits. LUNGS: Faint inspiratory crackles in dependent areas. HEART: S1, S2, regular rate. No S3, S4. ABDOMEN: Soft with moderate tenderness in the right upper quadrant and an enlarged liver edge about 3 cm below the right costal margin. No splenomegaly. No bladder distention, no ascites. She is able to move all extremities equally. Pulses are 2+ in dorsalis pedis. Plantar responses are flexor. No edema. No joint inflammatory activity. Cognitive function appears to be intact. LABORATORY DATA: White cell count 12,000 down to 8.7, hemoglobin 11 and now 9.1 , platelets down from 470 to 311, 76% neutrophils, 4% bands. Chemistry with AST 79, alkaline phosphatase 207, albumin 2.9, creatinine 0.7. Lactic acid was 2.8 and now 2.1. Calcium is normal. Albumin 2.9, globulin 5.2. Urinalysis with minor changes. Microbiology with 4 sets of blood cultures thus far no growth. Urine culture no growth. IMAGING STUDIES: Include an abdomen and pelvis CT scan from two days ago, which demonstrated diffuse metastases throughout liver, evidence of cholelithiasis and wall haziness, no ductal dilatation. Remainder of findings are within normal limits. A hepatobiliary scan was normal. Abdomen ultrasound with sonographic evidence of cholelithiasis, but no cholecystitis. Chest x-ray with nodule left lower lobe and another pulmonary nodule, small or possible nodules right upper lobe. No effusion or consolidation. The patient had a PET scan at the end of May x-ray with evidence of mixed response to therapy since 12/06. There was evidence of hypermetabolic activity, superior aspect of the Kendrick's pouch which could represent recurrence. ASSESSMENT: 1. Metastatic colon cancer to lungs and liver. 2. Fever for about a week now. DISCUSSION: Differential diagnosis include infectious causes such as port colonization, gallbladder inflammatory process versus non-infectious inflammatory processes including the possibility of thromboembolism and reaction to chemotherapeutic drugs, and paraneoplastic fever related to cytokine release associated with metastatic disease. Since admission, there has been reduction in the neutrophilia and seemingly reduction in the temperature curve. There has also been reduction in the thrombocytosis, which might indicate at least a partial response to Rocephin administration. We will continue Rocephin and see what the subsequent response continues to be. Follow up C-reactive protein and the blood cultures. Depending on clinical course, may need Indium labeled study. Another approach would be to repeat the PET scan to see if there is uptake that might suggest the area of involvement. If she truly has had port colonization despite negative blood cultures, there will be recrudescence of the fever once the antimicrobial was discontinued. Fungal infection of port would be another concern if the BC remain negative Tumor fever usually responds to anti-inflammatory administration, and we could try Naproxen if the problem persists. Thus far, the response appears to indicate that there has been some improvement following the initiation of Rocephin. MTDD
[2017-08-06] MEDS: Citalopram 20 MG TAB PO SCH ×2 (20:26→22:10)
[2017-08-07 06:37] LABS: #Eosinphils 0.1 thou/uL (0.0-0.7); #Lymphocytes 1.9 thou/uL (1.20-3.40); #Monocytes 0.8 thou/uL (0.11-0.59); %Basophils 0.1 % (0.0-1.0); %Eosinophils 1.8 % (0.0-10.0); %Lymphocytes 24.4 % (21.0-51.0); %Monocytes 10.4 % (0.0-10.0); %Neutrophils 63.4 % (42.0-75.0); Hemoglobin 9.3 g/dL (12.0-16.0); Mean Corpuscular HGB CONC 31.7 g/dL (32.0-36.0); Mean Corpuscular Volume 94.7 fl (81.0-99.0); Mean Platelet Volume 6.6 fL (7.4-10.4); Platelet Count 330 thou/uL (130-400); RBC Distribution Width 17.6 % (11.5-14.5); Red Blood Cell (RBC) Count 3.11 mill/uL (4.20-5.40); White Blood Cell (WBC) Count 7.9 thou/uL (4.8-10.8)
[2017-08-07 06:53] LABS: Anion Gap 10 mmol/L (10-20); BUN (Urea Nitrogen) 8 mg/dL (7.0-18.7); Calc. Creatinine Clearance 156 mL/min (70-130); Calcium 8.2 mg/dL (7.8-10.44); Carbon Dioxide 27 mmol/L (22-29); Chloride 104 mmol/L (98-107); Estimated GFR-MDRD Greater than 90; Glucose 81 mg/dL (70-105); Potassium 3.6 mmol/L (3.5-5.1); Sodium 137 mmol/L (136-145)
[2017-08-07 06:56] LABS: ALT (SGPT) 15 U/L (8-55); AST (SGOT) 22 U/L (5-34); Albumin 2.2 g/dL (3.5-5.0); Alkaline Phosphatase 140 U/L (40-150); Bilirubin, Direct 0.3 mg/dL (0.1-0.3); Bilirubin, Total 0.5 mg/dL (0.2-1.2); Protein, Total 6.1 g/dL (6.0-8.3)
[2017-08-07] MEDS: Enoxaparin Sodium 30 MG/0.3 ML SYRINGE SC SCH (10:16)
[2017-08-07] MEDS: ALPRAZolam 0.5 MG TAB PO SCH ×2 (10:17→22:07)
--- NOTE | 2017-08-07 10:57 | PDOC.PN ---
- Subjective Encounter Start Date: 08/07/17 Encounter Start Time: 10:56 Patient seen and admitted for fever of unclear origin. Abd US, HIDA negative for Acute cholecystitis. TTE showed sclerotic aortic valve but no vegetations. She has no complaints today and reports feeling much better. Temperature curve improving. No acute events overngiht. - Objective Resuscitation Status: Resuscitation Status FULL:Full Resuscitation MAR Reviewed: Yes Vital Signs & Weight: Vital Signs (12 hours) Temp Pulse Ox 08/07/17 01:45 94 L 08/06/17 23:45 98.9 F Weight Weight 160 lb 8 oz I&O: 08/06/17 08/07/17 08/08/17 06:59 06:59 06:59 Intake Total 1250 1480 Output Total 0 Balance 1250 1480 Result Diagrams: 08/07/17 06:25 08/07/17 06:25 Phys Exam - Physical Examination Constitutional: NAD HEENT: PERRLA, moist MMs, sclera anicteric Neck: supple, full ROM Respiratory: no wheezing, no rales, no rhonchi, clear to auscultation bilateral Cardiovascular: RRR, no significant murmur, no rub Gastrointestinal: soft, non-tender, no distention, positive bowel sounds Musculoskeletal: no edema, pulses present Neurological: non-focal, moves all 4 limbs Dx/Plan (1) Fever Code(s): R50.9 - FEVER, UNSPECIFIED Status: Acute Qualifiers: Fever type: unspecified Qualified Code(s): R50.9 - Fever, unspecified Comment: Clinically stable. Unclear origin. HIDA negative for cholecystitis. ? neoplasm related. Had low grade fever with diaphoresis overnight. (2) Bipolar disorder Code(s): F31.9 - BIPOLAR DISORDER, UNSPECIFIED Status: Chronic Qualifiers: Active/Remission status: remission status unspecified Qualified Code(s): F31.9 - Bipolar disorder, unspecified (3) Colon cancer metastasized to liver Code(s): C18.9 - MALIGNANT NEOPLASM OF COLON, UNSPECIFIED; C78.7 - SECONDARY MALIG NEOPLASM OF LIVER AND INTRAHEPATIC BILE DUCT Status: Chronic - Plan cont current plan of care, plan discussed w/ family, continue antibiotics, out of bed/ambulate, DVT proph w/lovenox f/u repeat cultures Switch to PO Levofloxacin f/i ID recommendations- for now they recommend monitoring, continuing antibiotics and follow up with blood cultures. Review of Systems - Medications/Allergies Allergies/Adverse Reactions: Allergies Allergy/AdvReac Type Severity Reaction Status Date / Time No Known Drug Allergies Allergy Verified 08/04/17 10:18 Medications: Current Medications Acetaminophen (Tylenol) 1,000 mg PO Q6HR PRN PRN Reason: Pain Last Admin: 08/06/17 18:44 Dose: 1,000 mg Alprazolam (Xanax) 1 mg PO BID [facility] Last Admin: 08/07/17 10:17 Dose: Not Given Citalopram Hydrobromide (Celexa) 20 mg PO HS [facility] Last Admin: 08/06/17 22:10 Dose: 20 mg Enoxaparin Sodium (Lovenox) 30 mg SC 0900 [facility] Last Admin: 08/07/17 10:16 Dose: Not Given Levofloxacin (Levaquin) 750 mg PO 0600 [facility] Sodium Chloride (Flush - Normal Saline) 10 ml IVF Q12HR [facility] Last Admin: 08/07/17 10:16 Dose: 10 ml Sodium Chloride (Flush - Normal Saline) 10 ml IVF PRN PRN PRN Reason: Saline Flush Last Admin: 08/06/17 14:39 Dose: 10 ml Tramadol HCl (Ultram) 50 mg PO QIDPRN PRN PRN Reason: Pain
[2017-08-07] MEDS: Acetaminophen 500 MG TAB PO PRN ×2 (13:14→23:57)
[2017-08-07] MEDS: Citalopram 20 MG TAB PO SCH (22:07)
[2017-08-08 04:40] LABS: #Basophils 0.1 thou/uL (0.0-0.2); #Eosinphils 0.1 thou/uL (0.0-0.7); #Lymphocytes 1.7 thou/uL (1.20-3.40); #Monocytes 1.2 thou/uL (0.11-0.59); %Basophils 0.6 % (0.0-1.0); %Eosinophils 1.3 % (0.0-10.0); %Monocytes 13.4 % (0.0-10.0); %Neutrophils 65.7 % (42.0-75.0); Hemoglobin 9.1 g/dL (12.0-16.0); Mean Corpuscular HGB CONC 31.5 g/dL (32.0-36.0); Mean Corpuscular Hemoglobin 29.6 pg (27.0-31.0); Mean Corpuscular Volume 93.9 fl (81.0-99.0); Mean Platelet Volume 6.9 fL (7.4-10.4); Platelet Count 300 thou/uL (130-400); RBC Distribution Width 17.8 % (11.5-14.5); Red Blood Cell (RBC) Count 3.09 mill/uL (4.20-5.40); White Blood Cell (WBC) Count 9.2 thou/uL (4.8-10.8)
[2017-08-08 05:04] LABS: Anion Gap 9 mmol/L (10-20); BUN (Urea Nitrogen) 7 mg/dL (7.0-18.7); Calc. Creatinine Clearance 156 mL/min (70-130); Calcium 8.5 mg/dL (7.8-10.44); Carbon Dioxide 27 mmol/L (22-29); Chloride 104 mmol/L (98-107); Estimated GFR-MDRD Greater than 90; Glucose 94 mg/dL (70-105); Potassium 3.8 mmol/L (3.5-5.1); Sodium 136 mmol/L (136-145)
[2017-08-08] MEDS: Naproxen 500 MG TAB PO SCH ×2 (09:37→21:43)
[2017-08-08] MEDS: ALPRAZolam 0.5 MG TAB PO SCH ×2 (09:37→21:43)
[2017-08-08] MEDS: Enoxaparin Sodium 30 MG/0.3 ML SYRINGE SC SCH (09:37)
--- NOTE | 2017-08-08 10:44 | PDOC.PN ---
- Subjective Encounter Start Date: 08/08/17 Encounter Start Time: 10:47 Patient seen and admitted for fever of unclear origin. Abd US, HIDA negative for Acute cholecystitis. TTE showed sclerotic aortic valve but no vegetations. She has no complaints today. Had a temperature spike overnight. Blood cultures remain negative - Objective Resuscitation Status: Resuscitation Status FULL:Full Resuscitation MAR Reviewed: Yes Vital Signs & Weight: Vital Signs (12 hours) Temp Pulse Resp BP Pulse Ox 08/08/17 08:00 96.2 F L 60 20 96 08/08/17 07:10 96.2 F L 60 20 119/74 96 08/08/17 04:21 97.7 F 71 20 98/64 95 08/08/17 01:23 99.2 F 08/08/17 00:01 102.9 F H 101 H 28 H 110/61 94 L Weight Weight 160 lb 8 oz I&O: 08/07/17 08/08/17 08/09/17 06:59 06:59 06:59 Intake Total 1480 1600 Output Total 0 Balance 1480 1600 Result Diagrams: 08/08/17 04:25 08/08/17 04:25 Phys Exam - Physical Examination Constitutional: NAD HEENT: PERRLA, moist MMs, sclera anicteric Neck: no JVD, supple, full ROM Respiratory: no wheezing, no rales, no rhonchi, clear to auscultation bilateral Cardiovascular: RRR, no significant murmur, no rub Gastrointestinal: soft, non-tender, no distention, positive bowel sounds Musculoskeletal: no edema, pulses present Neurological: non-focal, moves all 4 limbs Dx/Plan (1) Fever Code(s): R50.9 - FEVER, UNSPECIFIED Status: Acute Qualifiers: Fever type: unspecified Qualified Code(s): R50.9 - Fever, unspecified Comment: Clinically stable. Unclear origin. HIDA negative for cholecystitis. ? neoplasm related v port infection. ID on board. (2) Bipolar disorder Code(s): F31.9 - BIPOLAR DISORDER, UNSPECIFIED Status: Chronic Qualifiers: Active/Remission status: in remission of unspecified degree Qualified Code( s): F31.70 - Bipolar disorder, currently in remission, most recent episode unspecified (3) Colon cancer metastasized to liver Code(s): C18.9 - MALIGNANT NEOPLASM OF COLON, UNSPECIFIED; C78.7 - SECONDARY MALIG NEOPLASM OF LIVER AND INTRAHEPATIC BILE DUCT Status: Chronic - Plan cont current plan of care, plan discussed w/ family, continue antibiotics, out of bed/ambulate, DVT proph w/lovenox * . Review of Systems - Medications/Allergies Allergies/Adverse Reactions: Allergies Allergy/AdvReac Type Severity Reaction Status Date / Time No Known Drug Allergies Allergy Verified 08/04/17 10:18 Medications: Current Medications Acetaminophen (Tylenol) 1,000 mg PO Q6HR PRN PRN Reason: Pain Last Admin: 08/07/17 23:57 Dose: 1,000 mg Alprazolam (Xanax) 1 mg PO BID [facility] Last Admin: 08/08/17 09:37 Dose: Not Given Citalopram Hydrobromide (Celexa) 20 mg PO HS [facility] Last Admin: 08/07/17 22:07 Dose: 20 mg Enoxaparin Sodium (Lovenox) 30 mg SC 0900 [facility] Last Admin: 08/08/17 09:37 Dose: Not Given Levofloxacin (Levaquin) 750 mg PO 0600 [facility] Last Admin: 08/08/17 05:39 Dose: 750 mg Naproxen (Naprosyn) 500 mg PO BID [facility] Last Admin: 08/08/17 09:37 Dose: Not Given Sodium Chloride (Flush - Normal Saline) 10 ml IVF Q12HR [facility] Last Admin: 08/07/17 20:35 Dose: 10 ml Sodium Chloride (Flush - Normal Saline) 10 ml IVF PRN PRN PRN Reason: Saline Flush Last Admin: 08/06/17 14:39 Dose: 10 ml Tramadol HCl (Ultram) 50 mg PO QIDPRN PRN PRN Reason: Pain Last Admin: 08/07/17 16:29 Dose: 50 mg
--- NOTE | 2017-08-08 18:55 | PRG ---
DATE OF SERVICE: 08/08/2017 SUBJECTIVE: She had a little bit of pain in the right lower quadrant. No nausea or vomiting, no res piratory symptoms. Back pain has improved. No diarrhea. OBJECTIVE: VITAL SIGNS: T-max 102.9 earlier today around 1 minute past midnight, she is now 100. GENERAL: Awake, alert, oriented, in no distress. LUNGS: Clear. CARDIOVASCULAR: S1, S2. ABDOMEN: tenderness in the right upper quadrant with hepatomegaly. Right lower quadrant is soft wit h mild tenderness. EXTREMITIES: Range of motion in the right lower extremity does not elicit much pain. NEUROLOGIC: Cognitive function appears to be intact. LABORATORY DATA: White cell count 9.2, hemoglobin 9.1, platelets 300,000, 65% neutrophils. Sodium 1 36, creatinine 0.5. Liver profile normal. Albumin 2.2. All sets of blood cultures thus far are neg ative. ASSESSMENT: Metastatic colon cancer to lungs and liver and fever of unknown origin. Thus far, blood cultures are negative. The gallbladder workup did not show any evidence of acute cholecystitis. Po ssibility of a metastatic cancer associated fever is still within the realm of consideration and we w ill try naproxen to see if it helps. Definitely that kind of diagnosis is one of exclusion plus resp onse to the anti-inflammatory.
[2017-08-08] MEDS: Citalopram 20 MG TAB PO SCH (21:43)
[2017-08-09 05:59] LABS: Anion Gap 10 mmol/L (10-20); BUN (Urea Nitrogen) 7 mg/dL (7.0-18.7); Calc. Creatinine Clearance 153 mL/min (70-130); Calcium 8.8 mg/dL (7.8-10.44); Carbon Dioxide 29 mmol/L (22-29); Chloride 103 mmol/L (98-107); Estimated GFR-MDRD Greater than 90; Glucose 88 mg/dL (70-105); Potassium 4.1 mmol/L (3.5-5.1); Sodium 138 mmol/L (136-145)
[2017-08-09 06:19] LABS: Band 1 % (5-11); Eosinophils 2 % (0-10); Hemoglobin 9.6 g/dL (12.0-16.0); Lymphocytes 29 % (21-51); MDiff Complete? YES; Mean Corpuscular Hemoglobin 28.2 pg (27.0-31.0); Mean Platelet Volume 6.6 fL (7.4-10.4); Monocytes 15 % (0-10); Neutrophil 53 % (42-75); Platelet Count 331 thou/uL (130-400); RBC Distribution Width 18.5 % (11.5-14.5); Red Blood Cell (RBC) Count 3.41 mill/uL (4.20-5.40); White Blood Cell (WBC) Count 8.1 thou/uL (4.8-10.8)
[2017-08-09] MEDS: Naproxen 500 MG TAB PO SCH ×2 (09:13→21:06)
[2017-08-09] MEDS: Enoxaparin Sodium 30 MG/0.3 ML SYRINGE SC SCH (09:18)
[2017-08-09] MEDS: ALPRAZolam 0.5 MG TAB PO SCH ×2 (09:18→21:05)
[2017-08-09] MEDS ORDERED: Acetaminophen 500 MG TAB PO PRN (09:51)
--- NOTE | 2017-08-09 09:53 | PDOC.PN ---
- Subjective Encounter Start Date: 08/09/17 Encounter Start Time: 09:54 Patient doing well. No fever overnight. She was admitted for fever of unclear origin. Abd US, HIDA negative for Acute cholecystitis. TTE showed sclerotic aortic valve but no vegetations. She has no complaints today. Repeat Blood cultures remain negative - Objective Resuscitation Status: Resuscitation Status FULL:Full Resuscitation MAR Reviewed: Yes Vital Signs & Weight: Vital Signs (12 hours) Temp Pulse Resp BP Pulse Ox 08/09/17 08:00 96.2 F L 69 18 109/63 98 08/09/17 00:05 98.0 F Weight Weight 160 lb 8 oz I&O: 08/08/17 08/09/17 08/10/17 06:59 06:59 06:59 Intake Total 1600 1450 Balance 1600 1450 Result Diagrams: 08/09/17 05:36 08/09/17 05:36 Phys Exam - Physical Examination Constitutional: NAD HEENT: PERRLA, moist MMs, sclera anicteric, oral pharynx no lesions Neck: no JVD, supple, full ROM Respiratory: no wheezing, no rales, no rhonchi, clear to auscultation bilateral Cardiovascular: RRR, no significant murmur, no rub Gastrointestinal: soft, non-tender, no distention, positive bowel sounds Musculoskeletal: no edema, pulses present Neurological: non-focal, moves all 4 limbs Psychiatric: normal affect, A&O x 3 Skin: no rash, normal turgor Dx/Plan (1) Fever Code(s): R50.9 - FEVER, UNSPECIFIED Status: Acute Qualifiers: Fever type: unspecified Qualified Code(s): R50.9 - Fever, unspecified Comment: Clinically stable. Unclear origin. HIDA negative for cholecystitis. ? neoplasm related v port infection. ID on board. (2) Bipolar disorder Code(s): F31.9 - BIPOLAR DISORDER, UNSPECIFIED Status: Chronic Qualifiers: Active/Remission status: in remission of unspecified degree Qualified Code( s): F31.70 - Bipolar disorder, currently in remission, most recent episode unspecified (3) Colon cancer metastasized to liver Code(s): C18.9 - MALIGNANT NEOPLASM OF COLON, UNSPECIFIED; C78.7 - SECONDARY MALIG NEOPLASM OF LIVER AND INTRAHEPATIC BILE DUCT Status: Chronic - Plan cont current plan of care, plan discussed w/ family, out of bed/ambulate, DVT proph w/lovenox Stable. Will discuss with Dr. Hahn discharge planning. Continue NPROXEN. Monitor temperature curve and F/U FINAL BLOOD CULTURE report (3 sets of blood cultures negative till date). Review of Systems - Medications/Allergies Allergies/Adverse Reactions: Allergies Allergy/AdvReac Type Severity Reaction Status Date / Time No Known Drug Allergies Allergy Verified 08/04/17 10:18 Medications: Current Medications Acetaminophen (Tylenol) 1,000 mg PO Q6HR PRN PRN Reason: Pain Last Admin: 08/07/17 23:57 Dose: 1,000 mg Alprazolam (Xanax) 1 mg PO BID [facility] Last Admin: 08/09/17 09:18 Dose: Not Given Citalopram Hydrobromide (Celexa) 20 mg PO HS [facility] Last Admin: 08/08/17 21:43 Dose: 20 mg Enoxaparin Sodium (Lovenox) 30 mg SC 0900 [facility] Last Admin: 08/09/17 09:18 Dose: Not Given Levofloxacin (Levaquin) 750 mg PO 0600 [facility] Last Admin: 08/09/17 05:15 Dose: 750 mg Naproxen (Naprosyn) 250 mg PO BID [facility] Sodium Chloride (Flush - Normal Saline) 10 ml IVF Q12HR [facility] Last Admin: 08/09/17 09:17 Dose: 10 ml Sodium Chloride (Flush - Normal Saline) 10 ml IVF PRN PRN PRN Reason: Saline Flush Last Admin: 08/06/17 14:39 Dose: 10 ml Tramadol HCl (Ultram) 50 mg PO QIDPRN PRN PRN Reason: Pain Last Admin: 08/07/17 16:29 Dose: 50 mg
[2017-08-09] MEDS ORDERED: Acetaminophen 325 MG TAB PO PRN (10:01)
[2017-08-09] MEDS: Citalopram 20 MG TAB PO SCH (21:05)
[2017-08-10 05:49] LABS: Anion Gap 13 mmol/L (10-20); BUN (Urea Nitrogen) 10 mg/dL (7.0-18.7); Calc. Creatinine Clearance 150 mL/min (70-130); Calcium 8.5 mg/dL (7.8-10.44); Carbon Dioxide 27 mmol/L (22-29); Chloride 103 mmol/L (98-107); Estimated GFR-MDRD Greater than 90; Glucose 101 mg/dL (70-105); Potassium 4.2 mmol/L (3.5-5.1); Sodium 139 mmol/L (136-145)
[2017-08-10 06:21] LABS: Band 5 % (5-11); Eosinophils 5 % (0-10); Lymphocytes 28 % (21-51); MDiff Complete? YES; Mean Corpuscular HGB CONC 31.4 g/dL (32.0-36.0); Mean Corpuscular Hemoglobin 29.7 pg (27.0-31.0); Mean Corpuscular Volume 94.6 fl (81.0-99.0); Mean Platelet Volume 6.5 fL (7.4-10.4); Monocytes 8 % (0-10); Neutrophil 53 % (42-75); PLT Morphology Comment Appears Adequate; Platelet Count 360 thou/uL (130-400); RBC Distribution Width 18.5 % (11.5-14.5); Red Blood Cell (RBC) Count 3.37 mill/uL (4.20-5.40); White Blood Cell (WBC) Count 8.9 thou/uL (4.8-10.8)
[2017-08-10 08:30] VITALS: BP 128/77; TEMP 98
[2017-08-10] MEDS: Naproxen 500 MG TAB PO SCH (08:51)
[2017-08-10] MEDS: ALPRAZolam 0.5 MG TAB PO SCH (08:51)
[2017-08-10] MEDS: Enoxaparin Sodium 30 MG/0.3 ML SYRINGE SC SCH (08:51)
--- NOTE | 2017-08-11 06:33 | DIS ---
DATE OF ADMISSION: 08/04/2017 DATE OF DISCHARGE: 08/10/2017 DISCHARGE DIAGNOSES: 1. Fever, most likely secondary to possible inflammatory. 2. Bipolar disorder. 3. Colon cancer with metastasis to the liver. HOSPITAL COURSE: The patient is a very pleasant, 47-year-old female, who initially presented to the hospital with fever. The patient was seen by Urology, given her prior histories of UTI; however, per neurology's note, there was no evidence of urinalysis on microbiology indicating of UTI or possibly even a fistula. The patient also underwent a CT abdomen and pelvis, which indicated cholelithiasis w ith no specific gallbladder wall haziness and diffuse liver and lung metastasis. Patient underwent a right upper quadrant ultrasound, which indicated evidence of cholelithiasis; however, no cholecystit is. Patient then underwent a HIDA scan, which had no evidence of acute nahun, just had an EF of 66%. The patient at this time was also seen by General Surgery, who did not recommend any kind of surgic al interventions. Patient's blood cultures were negative, urine culture was negative. Echo indicate an EF of 50%-55% with normal ventricular size on the left side. The patient continued to be afebril e throughout the hospital stay. Infectious Disease also was consulted who thought that her fever cou ld be most likely secondary to underlying inflammatory reasons given her colon cancer with metastatic to her lung and her liver. Patient upon day of discharge was awake, alert, oriented and wanted to g o home. PHYSICAL EXAMINATION: VITAL SIGNS: Temperature 98.7, pulse 86, respiratory rate 18, oxygen saturation 96% on room air, blo od pressure 128/77. GENERAL: She is awake, alert, and oriented x3, does not appear in distress. CARDIOVASCULAR: S1, S2 present. No murmurs, rubs, or gallops. ABDOMEN: Soft, nontender. Bowel sounds are present x2. EXTREMITIES: No edema. HOME MEDICATIONS: She is going to go home with Tylenol q.6 hours p.r.n., tramadol 50 mg q.i.d. p.r.n ., Celexa 20 mg at bedtime, Xanax 1 mg p.o. t.i.d., naproxen 250 mg p.o. b.i.d. for 14 days, and Pepc id 20 mg p.o. b.i.d. DISCHARGE INSTRUCTION: She will follow up with Dr. Hahn and Dr. Pendleton next week.
[2017-08-11] MEDS ORDERED: Enoxaparin Sodium 40 MG/0.4 ML SYRINGE SC SCH (09:00)
== END 2017-08-10 15:55 | disposition home or self-care (01) | DRG 375 ==
LOC: ERS 00:10 → ONC 06:00
PROVIDERS: ADMIT Internal Medicine; ATTEND Internal Medicine
DX: C18.7 Malignant neoplasm of sigmoid colon (principal); C78.7 Secondary malignant neoplasm of liver and intrahepatic bile duct; C78.00 Secondary malignant neoplasm of unspecified lung; R50.81 Fever presenting with conditions classified elsewhere; K80.20 Calculus of gallbladder without cholecystitis without obstruction; F41.9 Anxiety disorder, unspecified; Z93.3 Colostomy status; G89.29 Other chronic pain; F31.9 Bipolar disorder, unspecified; M54.9 Dorsalgia, unspecified; Z80.0 Family history of malignant neoplasm of digestive organs; Z87.440 Personal history of urinary (tract) infections; Z90.49 Acquired absence of other specified parts of digestive tract; Z90.710 Acquired absence of both cervix and uterus; Z90.722 Acquired absence of ovaries, bilateral; Z90.79 Acquired absence of other genital organ(s); Z85.43 Personal history of malignant neoplasm of ovary; Z79.899 Other long term (current) drug therapy; Z95.828 Presence of other vascular implants and grafts; Z92.21 Personal history of antineoplastic chemotherapy
CPT/HCPCS: 36415; 71046; 74177; 76705; 78227; 80048; 80053; 80076; 81003; 81015; 83605; 84145; 85025; 87040; 87086; 93306; 96361; 96365; 96367; A4216; A9537; J0696; J1650; J2543; J3370; J7050

== ENCOUNTER 2017-08-17 03:19 | Inpatient (IN) | payer BC ==
[2017-08-17 04:18] LABS: #Lymphocytes 0.7 thou/uL (1.20-3.40); #Monocytes 0.5 thou/uL (0.11-0.59); #Neutrophils 16.1 thou/uL (1.40-6.50); %Eosinophils 0.1 % (0.0-10.0); %Lymphocytes 4.2 % (21.0-51.0); %Monocytes 2.8 % (0.0-10.0); %Neutrophils 92.9 % (42.0-75.0); Hemoglobin 11.4 g/dL (12.0-16.0); Mean Corpuscular HGB CONC 31.1 g/dL (32.0-36.0); Mean Corpuscular Hemoglobin 29.6 pg (27.0-31.0); Mean Corpuscular Volume 94.9 fl (81.0-99.0); Mean Platelet Volume 6.6 fL (7.4-10.4); Platelet Count 425 thou/uL (130-400); Red Blood Cell (RBC) Count 3.86 mill/uL (4.20-5.40); White Blood Cell (WBC) Count 17.3 thou/uL (4.8-10.8)
[2017-08-17 04:34] LABS: ALT (SGPT) 31 U/L (8-55); AST (SGOT) 50 U/L (5-34); Albumin 2.8 g/dL (3.5-5.0); Alkaline Phosphatase 259 U/L (40-150); Anion Gap 15 mmol/L (10-20); BUN (Urea Nitrogen) 17 mg/dL (7.0-18.7); Bilirubin, Total 0.5 mg/dL (0.2-1.2); Calc. Creatinine Clearance 0 mL/min (70-130); Calcium 9.5 mg/dL (7.8-10.44); Carbon Dioxide 24 mmol/L (22-29); Chloride 105 mmol/L (98-107); Estimated GFR-MDRD Greater than 90; Glucose 129 mg/dL (70-105); Potassium 4.8 mmol/L (3.5-5.1); Protein, Total 7.8 g/dL (6.0-8.3); Sodium 139 mmol/L (136-145)
[2017-08-17] MEDS ORDERED: Cefepime 2 GM VIAL ONE (04:34)
[2017-08-17] MEDS ORDERED: Ondansetron ODT 4 MG TAB SL PRN (06:13)
[2017-08-17] MEDS ORDERED: Ondansetron HCl/PF 4 MG/2 ML Vial IVP PRN (06:13)
[2017-08-17] MEDS ORDERED: Acetaminophen 325 MG TAB PO PRN (06:13)
[2017-08-17 06:40] VITALS: BMI 25.7
[2017-08-17 08:26] LABS: Lactic Acid 2.5 mmol/L (0.5-2.2)
--- NOTE | 2017-08-17 08:31 | RAD ---
CHEST 1 VIEW: Date: 08/17/17 HISTORY: Cough and congestion. Colorectal Stage IV cancer. COMPARISON: Chest radiograph from 2017. FINDINGS: There is left basilar nodule, which is dominant, measuring up to almost 2.0 cm. There are other left basilar pulmonary nodules. No focal air space consolidation, pneumothorax, or effusion. Port cath is similar. IMPRESSION: Findings concerning for pulmonary metastatic disease. POS: RADHIKAH
[2017-08-17] MEDS ORDERED: Guaifenesin DM 100-10/5 ML UDCUP PO PRN (10:45)
[2017-08-17] MEDS ORDERED: Senokot 8.6 MG TAB PO PRN (10:45)
[2017-08-17] MEDS ORDERED: Dextrose 5% in Water 1,000 ML IV PRN (10:45)
[2017-08-17] MEDS ORDERED: Dextrose 50% Abboject 50 ML SYRINGE SLOW IVP PRN (10:45)
[2017-08-17] MEDS ORDERED: traMADol HCl 50 MG TAB PO PRN (10:45)
[2017-08-17] MEDS ORDERED: HumaLOG 300 UNITS/3 ML VIAL SC PRN ×2 (10:45)
[2017-08-17] MEDS: Sodium Chloride 0.9% 1,000 ML IV SCH (12:38)
[2017-08-17] MEDS: Piperacillin/Tazobactam 4.5 GM in Sodium Chloride 0.9% 100 ML IVPB SCH ×2 (12:40→17:16)
[2017-08-17] MEDS: Vancomycin HCl 1 GM in Premix Bag 1 BAG IVPB SCH ×2 (12:51→21:14)
[2017-08-17] MEDS ORDERED: Cosyntropin 250 MCG VIAL SLOW IVP SCH (13:15)
--- NOTE | 2017-08-17 13:17 | CON ---
DATE OF CONSULTATION: 08/17/2017 REASON FOR CONSULTATION: Respiratory symptoms. HISTORY OF PRESENT ILLNESS: A 47-year-old familiar to me from recent consultation with a history of metastatic colon cancer initially diagnosed in the [facility]. She underwent a colostomy wi th surgical resection and Kendrick's pouch. Subsequently, identified with lung and liver metastases and after moving to this area from [facility] to be with family members she started treatmen t under supervision by Dr. Pendleton. I saw her on 08/06/2017 because of recurrent episodes of fever w hich developed about a month before this last admission up to 103 and this has failed antimicrobial t herapy. This was associated with some confusional state and weakness. She did not have any other sp ecific symptoms. She did have some intense back pain which has improved. The differential diagnosis at that time included infectious cause such as port colonization, gallbladder inflammatory process v ersus noninfectious inflammatory processes including the possibility of thromboembolism, reaction of chemotherapeutic agents as well as possibility of paraneoplastic fever. The last CAT scan on 018 demonstrated a mixed response to therapy since November last year. She did have multiple hyperm etabolic foci in the liver. The lung nodules did not demonstrate abnormal FDG localization. After t he workup the patient had multiple negative cultures and we decided to try give her a trial of naprox en and since starting naproxen, the fever has not recurred, so we felt that the hypothesis of a paran eoplastic fever had been supported by the trial. The patient was discharged and apparently has been started yesterday on a new chemotherapeutic agent intravenously given via port and then the next day, she developed hypothermia, profuse sweats and she was brought to the hospital for evaluation and was admitted. Initial findings in the emergency room included pulse 90, respirations 18, O2 sat 99%. B P 129/72, the initial temperature was 94.2 rectal. The exam was not particularly remarkable. The ab domen exam was nontender. Currently, Ms. Lugo is awake and alert. Appears in no distress. She is oriented, denies any headach es, visual symptoms, sore throat, odynophagia, dysphagia, no back pain, no pain at the port site. No abdominal pain. Voiding without difficulty. Colostomy output is normal with formed stool. She thorpe s not have any joint symptoms. PAST MEDICAL HISTORY: Gallstones, metastatic colon cancer to liver and lung, on chemotherapy with re cent change in chemotherapy a few days ago, port placement left subclavian region, partial colectomy in the [facility] with Kendrick's pouch and colostomy. SOCIAL HISTORY: Never a smoker, currently living in [place] with mother. ALLERGIES: None. CURRENT MEDICATIONS: Vancomycin, tramadol, Zosyn, naproxen, morphine, insulin, famotidine, alprazola m. PHYSICAL EXAMINATION: VITAL SIGNS: In the hospital T-max 97.5, blood pressure 92/62, pulse 72, respirations 18, O2 sat 94% . SKIN: Shows the left accessed subclavian port with no inflammatory changes and the colostomy site wi th no abnormalities noted. The patient is voiding spontaneously. No lymphadenopathy. HEENT: Ocular movements are conjugate. Oral cavity normal. Conjunctivae are somewhat pale. NECK: Supple, no jugular vein distention. LUNGS: Symmetric, clear breath sounds with some diminished breath sounds in the right base. HEART: S1, S2, regular rate without murmurs. No S3, S4. ABDOMEN: Flat, soft, not distended or tender. No bladder distention, no ascites. Actually there is a little bit of tenderness on percussion in the right costal margin. Liver edge is palpable about 2 cm below. EXTREMITIES: No joint inflammatory activity. She is able to move all extremities equally, normal st rength. NEUROLOGIC: Cognitive function appears to be intact. LABORATORY DATA: White cell count 17.3, hemoglobin 11, platelets 425 with 42% neutrophils. Chemistr y with AST 50, ALT 31, alkaline phosphatase 259. Electrolytes normal. Glucose 129, albumin 2.8. e has not had a urinalysis done. Microbiology with 2 sets of blood cultures pending. Chest x-ray wi th findings of metastatic pulmonary disease. ASSESSMENT: 1. Metastatic colon cancer to lungs and liver with recent admission with fever, felt to be secondary to paraneoplastic fever which resolved after naproxen. 2. New chemotherapeutic agent started I believe yesterday with subsequent development of hypothermia . The patient also with leukocytosis. DISCUSSION: The patient will have to be worked up from bacteremia or fungemia again, and cultures ar e pending. Broad spectrum coverage initiated. We will have to evaluate the new chemotherapeutic reg imen to see if it could be associated with neutrophilia and the reactions the patient is displaying a t this point in time. Thromboembolism is another concern and we will go ahead and evaluate duplex ul trasound of the lower extremities. May need a CT angio as well depending on clinical progress.
--- NOTE | 2017-08-17 14:05 | HP ---
DATE OF ADMISSION: 08/17/2017 REASON FOR ADMISSION: Possible sepsis, hypothermia, shortness of breath. HISTORY OF PRESENTING ILLNESS: The patient's mom saw her soaking wet around midnight. She apparentl y had fever and it broke. She was extremely cold and freezing. She tried to cover her with multiple blankets. Thirty minutes later, she went to check on her again and she was still the same and was c oughing with shortness of breath as well. The patient was lethargic and still cold. As this has hap pened before, the patient's mom called EMS and the patient was brought to emergency room. On arrival in ER, the patient was found to have had a rectal temperature of 94.2 degrees and white count of 17 with lactic acid of 2.6. The patient states that she had a new chemotherapy initiated yesterday. Umair clay is already on 5-FU continuous infusion via [employer]. Currently, has no complaints of chest pain, p alpitations or PND. Has some dry cough, but no expectoration as such. She is currently feeling bett er now. Her temperature has gone up to 97 degrees this morning. PAST MEDICAL AND SURGICAL HISTORY: History of metastatic colon cancer to liver and lungs, history of ovarian cancer with total abdominal hysterectomy and bilateral salpingo-oophorectomy with omentectom y in the past, rectosigmoid colon resection with colostomy done in 08/2016, [facility], anxiety disorde r, obsessive compulsive disorder. PERSONAL HISTORY: Does not abuse alcohol or drugs. She lives with her mom. FAMILY HISTORY: Multiple family members with colon cancer including 3 cousins and an uncle. CODE STATUS: Full. Power of business attorney is her mom. CURRENT MEDICATIONS: The patient is on Naprosyn 250 mg twice daily from the last 1 week, Ultram 50 m g p.o. q.i.d. p.r.n., Pepcid 20 mg twice daily, Celexa 20 mg p.o. at bedtime, vitamin D3 4000 units p .o. daily, Xanax 1 mg p.o. at bedtime. She is on 5-FU infusion and a new chemotherapy, which was ini tiated yesterday. ALLERGIES: No known drug allergies. REVIEW OF SYSTEMS: The following complete review of systems was negative, unless otherwise mentioned in the HPI or below. Constitutional: Weight loss or gain, ability to conduct usual activities. Sk in: Rash, itching. Eyes: Double vision, pain. ENT/Mouth: Nose bleeding, neck stiffness, pain, te nderness. Cardiovascular: Palpitations, dyspnea on exertion, orthopnea. Respiratory: Shortness of breath, wheezing, cough, hemoptysis, fever or night sweats. Gastrointestinal: Poor appetite, abdom inal pain, heartburn, nausea, vomiting, constipation, or diarrhea. Genitourinary: Urgency, frequenc y, dysuria, nocturia. Musculoskeletal: Pain, swelling. Neurologic/Psychiatric: Anxiety, depressio n. Allergy/Immunologic: Skin rash, bleeding tendency. PHYSICAL EXAMINATION: GENERAL: The patient is a 47-year-old female who is currently not in any acute distress. VITAL SIGNS: Blood pressure 97/70, pulse 68 per minute, respiratory rate 16 per minute, rectal tempe rature on arrival was 94.2 degrees, saturating 97% on room air. NECK: Supple. No elevated JVD. HEENT: Extraocular muscles intact. Pupils reacting to light. Oral cavity, mucous membranes are dry . No exudates or congestion. CARDIOVASCULAR: S1, S2 heard. Regular rhythm. RESPIRATORY: Air entry 1+ bilateral. Scattered rhonchi plus no rales or wheezes. ABDOMEN: Soft. Bowel sounds heard. Colostomy in left lower quadrant. No rigidity or guarding. EXTREMITIES: No peripheral edema or calf tenderness. VASCULAR: Peripheral pulses 1+ bilateral. No ischemic ulcerations or gangrene. CENTRAL NERVOUS SYSTEM: No gross focal deficits seen. The patient is alert, awake and oriented well . PSYCHIATRIC: The patient's mood is euthymic. No hallucinations or delusions. LABORATORY AND X-RAY FINDINGS: White count of 17, H&H 11 and 36, platelet count is 425 with 92% neut rophils, MCV is 94. Electrolytes are stable. BUN 11, creatinine 0.6, serum glucose 93, lactic acid 2.6, AST 58, ALT 33, alkaline phosphatase 271, total bilirubin is 0.7, LDH is 680, albumin is 2.9. C EA levels were 1239.46. Random cortisol level drawn around 11:00 a.m. is 1.90. Chest x-ray done carly ws no acute infiltrate, but the patient has signs of metastatic disease. EKG done shows sinus bradyc ardia at 55 beats per minute. CLINICAL IMPRESSION AND PLAN: The patient will be admitted to Medical Floor/Oncology Floor for possi ble sepsis with hypothermia. The patient also started new chemotherapeutic agent yesterday and it is unclear if her current symptoms are related to the new chemo agent. She has been on 5-FU infusion f rom last November or so. The patient was taken off Avastin and eyak-based chemo agent from her last admission. Blood and urine cultures have been obtained in the ER. She will be on vancomycin an d Zosyn. We will consult Dr. Hahn for Infectious Disease and Dr. Pendleton for Oncology. The patient and mom said that Naprosyn really helped for nearly 6 days after her last discharge with respect to her fever. She was completely alright until the new chemo agent was given yesterday. The only sympt om she has at present is dry coughing spells. The patient is immunosuppressed and has a left shift w ith white count of 17. We will continue to closely monitor her.
[2017-08-17] MEDS ORDERED: ALPRAZolam 1 MG TAB PO SCH (15:00)
--- NOTE | 2017-08-17 15:46 | ULT ---
BILATERAL LOWER EXTREMITY VENOUS DUPLEX ULTRASOUND INCLUDING COLOR AND SPECTRAL DOPPLER IMAGING: HISTORY: A 47-year-old female with a history of immobility, bilateral lower extremity edema, dyspnea, and canc er. FINDINGS: Exam performed from groin to ankle including visualized greater saphenous, common femoral, superficia l femoral, profunda femoral, popliteal, trifurcation, and posterior tibial vein regions. Patent flow noted at all levels with normal compressibility and normal augmentation. No intraluminal thrombus. IMPRESSION: No evidence for deep venous thrombosis. POS: C
[2017-08-17] MEDS ORDERED: VANCOMYCIN IVPB PRN (20:36)
[2017-08-17] MEDS ORDERED: Vancomycin HCl 1 GM in Sodium Chloride 0.9% 250 ML 250 ML IVPB SCH (21:00)
[2017-08-17] MEDS: Famotidine 20 MG TAB PO SCH (21:16)
[2017-08-17] MEDS: ALPRAZolam 0.5 MG TAB PO SCH (21:16)
[2017-08-17] MEDS: Citalopram 20 MG TAB PO SCH (21:16)
[2017-08-17] MEDS: Naproxen 500 MG TAB PO SCH (21:17)
[2017-08-17] MEDS: Acetaminophen 325 MG TAB PO PRN (22:13)
[2017-08-18] MEDS: Piperacillin/Tazobactam 4.5 GM in Sodium Chloride 0.9% 100 ML IVPB SCH ×5 (00:39→23:07)
[2017-08-18] MEDS: Sodium Chloride 0.9% 1,000 ML IV SCH ×2 (03:34→13:14)
[2017-08-18] MEDS: Vancomycin HCl 1 GM in Premix Bag 1 BAG IVPB SCH ×3 (03:42→20:12)
[2017-08-18 05:42] LABS: #Lymphocytes 0.7 thou/uL (1.20-3.40); #Monocytes 0.8 thou/uL (0.11-0.59); #Neutrophils 14.5 thou/uL (1.40-6.50); %Basophils 0.1 % (0.0-1.0); %Eosinophils 0.2 % (0.0-10.0); %Lymphocytes 4.5 % (21.0-51.0); %Neutrophils 90.3 % (42.0-75.0); Hemoglobin 10.4 g/dL (12.0-16.0); Mean Corpuscular HGB CONC 31.6 g/dL (32.0-36.0); Mean Corpuscular Hemoglobin 29.9 pg (27.0-31.0); Mean Corpuscular Volume 94.4 fl (81.0-99.0); Mean Platelet Volume 6.8 fL (7.4-10.4); Platelet Count 363 thou/uL (130-400); RBC Distribution Width 18.3 % (11.5-14.5); White Blood Cell (WBC) Count 16.1 thou/uL (4.8-10.8)
[2017-08-18 06:03] LABS: Anion Gap 13 mmol/L (10-20); BUN (Urea Nitrogen) 16 mg/dL (7.0-18.7); Calc. Creatinine Clearance 132 mL/min (70-130); Carbon Dioxide 23 mmol/L (22-29); Chloride 107 mmol/L (98-107); Estimated GFR-MDRD Greater than 90; Glucose 106 mg/dL (70-105); Potassium 4.9 mmol/L (3.5-5.1); Sodium 138 mmol/L (136-145)
[2017-08-18] MEDS: Famotidine 20 MG TAB PO SCH ×2 (09:32→22:10)
[2017-08-18] MEDS: Enoxaparin Sodium 40 MG/0.4 ML SYRINGE SC SCH (09:32)
[2017-08-18] MEDS: Naproxen 500 MG TAB PO SCH ×2 (09:33→22:09)
--- NOTE | 2017-08-18 09:46 | PDOC.PN ---
- Subjective Encounter Start Date: 08/18/17 Encounter Start Time: 09:00 Subjective: feels better, no abd pain or nausea - Objective Resuscitation Status: Resuscitation Status FULL:Full Resuscitation MAR Reviewed: Yes Vital Signs & Weight: Vital Signs (12 hours) Temp Pulse Resp BP Pulse Ox 08/18/17 08:00 97.3 F L 59 L 12 125/66 97 08/18/17 03:45 104/65 08/18/17 03:12 97.4 F L 57 L 20 89/60 L 98 08/18/17 01:39 97 08/17/17 23:31 97.4 F L 67 18 95/55 L 97 Weight Weight 159 lb 9.835 oz I&O: 08/17/17 08/18/17 08/19/17 06:59 06:59 06:59 Intake Total 1870 Output Total 0 Balance 1870 Result Diagrams: 08/18/17 05:11 08/18/17 05:11 Additional Labs: Accuchecks 08/18/17 08/17/17 08/17/17 05:05 16:17 11:54 POC Glucose 117 H 115 H 137 H Phys Exam - Physical Examination HEENT: PERRLA, moist MMs Neck: no JVD, supple Respiratory: no wheezing, no rales Cardiovascular: RRR, no significant murmur Gastrointestinal: soft, non-tender, positive bowel sounds Musculoskeletal: no edema, pulses present Neurological: non-focal, moves all 4 limbs Psychiatric: A&O x 3 Dx/Plan (1) Sepsis Code(s): A41.9 - SEPSIS, UNSPECIFIED ORGANISM Status: Acute (2) Hypothermia Code(s): T68.XXXA - HYPOTHERMIA, INITIAL ENCOUNTER Status: Resolved Qualifiers: Encounter type: subsequent encounter Qualified Code(s): T68.XXXD - Hypothermia, subsequent encounter (3) metastatic colon cancer Status: Chronic Comment: to liver and lungs (4) Chronic anemia Code(s): D64.9 - ANEMIA, UNSPECIFIED Status: Chronic (5) Bipolar disorder Code(s): F31.9 - BIPOLAR DISORDER, UNSPECIFIED Status: Chronic Qualifiers: Active/Remission status: in remission of unspecified degree Qualified Code( s): F31.70 - Bipolar disorder, currently in remission, most recent episode unspecified - Plan is on vanc and zosyn -: cosyntropin test today -: gentle iv hydration, encourage po intake -: wbc down to 16, temp is normal now -: to amb in hallway, await onc opinion * . Review of Systems - Medications/Allergies Allergies/Adverse Reactions: Allergies Allergy/AdvReac Type Severity Reaction Status Date / Time No Known Drug Allergies Allergy Verified 08/04/17 10:18 Medications: Current Medications Acetaminophen (Tylenol) 650 mg PO Q4H PRN PRN Reason: Headache/Fever or Pain Last Admin: 08/17/17 22:13 Dose: 650 mg Alprazolam (Xanax) 1 mg PO TID [facility] Last Admin: 08/17/17 21:16 Dose: 1 mg Citalopram Hydrobromide (Celexa) 20 mg PO HS [facility] Last Admin: 08/17/17 21:16 Dose: 20 mg Cosyntropin (Cortrosyn) 250 mcg SLOW IVP [facility] Stop: 08/18/17 13:16 Last Admin: 08/17/17 13:41 Dose: 250 mcg Enoxaparin Sodium (Lovenox) 40 mg SC 0900 [facility] Last Admin: 08/18/17 09:32 Dose: 40 mg Famotidine (Pepcid) 20 mg PO BID [facility] Last Admin: 08/18/17 09:32 Dose: 20 mg Glucagon (Glucagon) 1 mg IM PRN PRN PRN Reason: Hypoglycemia Guaifenesin/Dextromethorphan (Robitussin Dm) 15 ml PO Q4H PRN PRN Reason: Cough Sodium Chloride (Normal Saline 0.9%) 1,000 mls @ 60 mls/hr IV .[id number] [facility] Last Admin: 08/18/17 03:34 Dose: Not Given Piperacillin Sod/Tazobactam (Sod 4.5 gm/ Sodium Chloride) 100 mls @ 200 mls/hr IVPB Q6HR [facility] Last Admin: 08/18/17 05:32 Dose: 100 mls Vancomycin HCl 1 gm/ Device 200 mls @ 200 mls/hr IVPB 0400,1200,2000 [facility] Last Admin: 08/18/17 03:42 Dose: 200 mls Miscellaneous Medication (Pharmacy To Dose) 1 each IVPB PRN PRN PRN Reason: SEPSIS Morphine Sulfate (Morphine) 2 mg SLOW IVP Q4H PRN PRN Reason: Chest Pain/BP Elevations Naproxen (Naprosyn) 250 mg PO BID [facility] Last Admin: 08/18/17 09:33 Dose: 250 mg Senna (Senokot) 2 tab PO HSPRN PRN PRN Reason: Constipation Sodium Chloride (Flush - Normal Saline) 10 ml IVF Q12HR [facility] Last Admin: 08/17/17 21:18 Dose: 10 ml Sodium Chloride (Flush - Normal Saline) 10 ml IVF PRN PRN PRN Reason: Saline Flush Tramadol HCl (Ultram) 50 mg PO QIDPRN PRN PRN Reason: Pain
[2017-08-18] MEDS: ALPRAZolam 0.5 MG TAB PO SCH ×3 (11:08→22:09)
[2017-08-18 11:37] LABS: Vancomycin, Trough 18.9 ug/mL
[2017-08-18] MEDS: Citalopram 20 MG TAB PO SCH (22:09)
[2017-08-18] MEDS: Acetaminophen 325 MG TAB PO PRN (22:13)
[2017-08-19] MEDS: Vancomycin HCl 1 GM in Premix Bag 1 BAG IVPB SCH ×2 (03:04→20:32)
[2017-08-19] MEDS: Piperacillin/Tazobactam 4.5 GM in Sodium Chloride 0.9% 100 ML IVPB SCH ×4 (05:13→23:52)
[2017-08-19] MEDS: Enoxaparin Sodium 40 MG/0.4 ML SYRINGE SC SCH (08:04)
[2017-08-19] MEDS: ALPRAZolam 0.5 MG TAB PO SCH ×3 (08:07→20:42)
[2017-08-19] MEDS: Famotidine 20 MG TAB PO SCH ×2 (08:07→20:41)
[2017-08-19] MEDS: Naproxen 500 MG TAB PO SCH ×2 (08:07→20:42)
--- NOTE | 2017-08-19 10:21 | PDOC.PN ---
- Subjective Encounter Start Date: 08/19/17 Encounter Start Time: 10:00 Subjective: no dizziness or sob -: feels better, slept well last night, is eating better -: mother at bedside - Objective Resuscitation Status: Resuscitation Status FULL:Full Resuscitation MAR Reviewed: Yes Vital Signs & Weight: Vital Signs (12 hours) Temp Pulse Resp BP Pulse Ox 08/19/17 08:00 97.3 F L 76 16 95 08/19/17 07:28 97.3 F L 76 16 83/52 L 95 08/19/17 00:12 98 Weight Weight 159 lb 9.835 oz I&O: 08/18/17 08/19/17 08/20/17 06:59 06:59 06:59 Intake Total 1870 2340 Output Total 0 Balance 1870 2340 Result Diagrams: 08/18/17 05:11 08/18/17 05:11 Additional Labs: Accuchecks 08/18/17 11:07 POC Glucose 111 H Phys Exam - Physical Examination HEENT: PERRLA, moist MMs Neck: no JVD, supple Respiratory: no wheezing, no rales Cardiovascular: RRR, no significant murmur Gastrointestinal: soft, non-tender, positive bowel sounds colostomy if filled with gas Musculoskeletal: no edema, pulses present Neurological: non-focal, moves all 4 limbs Psychiatric: A&O x 3 Dx/Plan (1) Sepsis Code(s): A41.9 - SEPSIS, UNSPECIFIED ORGANISM Status: Acute Qualifiers: Sepsis type: sepsis due to unspecified organism Qualified Code(s): A41.9 - Sepsis, unspecified organism (2) Hypothermia Code(s): T68.XXXA - HYPOTHERMIA, INITIAL ENCOUNTER Status: Resolved Qualifiers: Encounter type: subsequent encounter Qualified Code(s): T68.XXXD - Hypothermia, subsequent encounter (3) metastatic colon cancer Status: Chronic Comment: to liver and lungs (4) Chronic anemia Code(s): D64.9 - ANEMIA, UNSPECIFIED Status: Chronic (5) Bipolar disorder Code(s): F31.9 - BIPOLAR DISORDER, UNSPECIFIED Status: Chronic Qualifiers: Active/Remission status: in remission of unspecified degree Qualified Code( s): F31.70 - Bipolar disorder, currently in remission, most recent episode unspecified - Plan possible relative adrenal insufficiency with hypothermia/hypotension -: start solumedrol, will switch to prednisone in am -: blood csx2 -ve -: will check labs in am -: d/w mother and pt at bedside, is on vanc and zosyn * . Review of Systems - Medications/Allergies Allergies/Adverse Reactions: Allergies Allergy/AdvReac Type Severity Reaction Status Date / Time No Known Drug Allergies Allergy Verified 08/04/17 10:18 Medications: Current Medications Acetaminophen (Tylenol) 650 mg PO Q4H PRN PRN Reason: Headache/Fever or Pain Last Admin: 08/18/17 22:13 Dose: 650 mg Alprazolam (Xanax) 1 mg PO TID [facility] Last Admin: 08/19/17 08:07 Dose: Not Given Citalopram Hydrobromide (Celexa) 20 mg PO HS [facility] Last Admin: 08/18/17 22:09 Dose: 20 mg Enoxaparin Sodium (Lovenox) 40 mg SC 0900 [facility] Last Admin: 08/19/17 08:04 Dose: Not Given Famotidine (Pepcid) 20 mg PO BID [facility] Last Admin: 08/19/17 08:07 Dose: 20 mg Glucagon (Glucagon) 1 mg IM PRN PRN PRN Reason: Hypoglycemia Guaifenesin/Dextromethorphan (Robitussin Dm) 15 ml PO Q4H PRN PRN Reason: Cough Sodium Chloride (Normal Saline 0.9%) 1,000 mls @ 60 mls/hr IV .[id number] [facility] Last Admin: 08/18/17 13:14 Dose: 1,000 mls Piperacillin Sod/Tazobactam (Sod 4.5 gm/ Sodium Chloride) 100 mls @ 200 mls/hr IVPB Q6HR [facility] Last Admin: 08/19/17 05:13 Dose: 100 mls Vancomycin HCl 1 gm/ Device 200 mls @ 200 mls/hr IVPB 0400,1200,2000 [facility] Last Admin: 08/19/17 03:04 Dose: 200 mls Methylprednisolone Sodium Succinate (Solu-Medrol) 20 mg IVP Q8HR [facility] Miscellaneous Medication (Pharmacy To Dose) 1 each IVPB PRN PRN PRN Reason: SEPSIS Morphine Sulfate (Morphine) 2 mg SLOW IVP Q4H PRN PRN Reason: Chest Pain/BP Elevations Naproxen (Naprosyn) 250 mg PO BID [facility] Last Admin: 08/19/17 08:07 Dose: 250 mg Senna (Senokot) 2 tab PO HSPRN PRN PRN Reason: Constipation Last Admin: 08/18/17 12:04 Dose: 2 tab Sodium Chloride (Flush - Normal Saline) 10 ml IVF Q12HR [facility] Last Admin: 08/19/17 08:07 Dose: 10 ml Sodium Chloride (Flush - Normal Saline) 10 ml IVF PRN PRN PRN Reason: Saline Flush Tramadol HCl (Ultram) 50 mg PO QIDPRN PRN PRN Reason: Pain
[2017-08-19 11:27] LABS: Vancomycin, Trough 28.1 ug/mL
[2017-08-19] MEDS: Acetaminophen 325 MG TAB PO PRN (13:11)
[2017-08-19] MEDS: Sodium Chloride 0.9% 1,000 ML IV SCH (13:11)
[2017-08-19] MEDS: Citalopram 20 MG TAB PO SCH (20:42)
[2017-08-20] MEDS: Piperacillin/Tazobactam 4.5 GM in Sodium Chloride 0.9% 100 ML IVPB SCH ×4 (05:58→23:35)
[2017-08-20] MEDS: Sodium Chloride 0.9% 1,000 ML IV SCH ×2 (06:04→09:32)
[2017-08-20] MEDS: Enoxaparin Sodium 40 MG/0.4 ML SYRINGE SC SCH (09:21)
[2017-08-20] MEDS: ALPRAZolam 0.5 MG TAB PO SCH ×3 (09:21→22:03)
[2017-08-20] MEDS: Vancomycin HCl 1 GM in Premix Bag 1 BAG IVPB SCH ×2 (09:28→20:16)
[2017-08-20] MEDS: Famotidine 20 MG TAB PO SCH ×2 (09:28→22:03)
[2017-08-20] MEDS: Naproxen 500 MG TAB PO SCH ×2 (09:35→22:03)
[2017-08-20 09:47] LABS: Hemoglobin 9.6 g/dL (12.0-16.0); Mean Corpuscular HGB CONC 30.7 g/dL (32.0-36.0); Mean Corpuscular Hemoglobin 29.5 pg (27.0-31.0); Mean Corpuscular Volume 96.2 fl (81.0-99.0); Mean Platelet Volume 8.2 fL (7.4-10.4); Platelet Count 265 thou/uL (130-400); RBC Distribution Width 18.9 % (11.5-14.5); Red Blood Cell (RBC) Count 3.24 mill/uL (4.20-5.40); White Blood Cell (WBC) Count 9.8 thou/uL (4.8-10.8)
--- NOTE | 2017-08-20 09:52 | PDOC.PN ---
- Subjective Encounter Start Date: 08/20/17 Encounter Start Time: 09:00 Subjective: no abd pain, has dry cough -: eating well, no complaints -: mother at bedside - Objective Resuscitation Status: Resuscitation Status FULL:Full Resuscitation MAR Reviewed: Yes Vital Signs & Weight: Vital Signs (12 hours) Temp Pulse Resp BP Pulse Ox 08/20/17 08:00 97 F L 65 16 97 08/20/17 07:50 65 16 95/57 L 97 08/20/17 04:04 97.4 F L 58 L 16 108/68 95 08/19/17 23:51 97.4 F L 63 16 97/64 93 L Weight Weight 159 lb 9.835 oz I&O: 08/19/17 08/20/17 08/21/17 06:59 06:59 06:59 Intake Total 2340 3180 Balance 2340 3180 Result Diagrams: 08/20/17 09:30 08/18/17 05:11 Phys Exam - Physical Examination HEENT: PERRLA, moist MMs Neck: no JVD, supple Respiratory: no wheezing, no rales Cardiovascular: RRR, no significant murmur Gastrointestinal: soft, non-tender, positive bowel sounds colostomy+ Musculoskeletal: no edema, pulses present Neurological: non-focal, moves all 4 limbs Psychiatric: A&O x 3 Dx/Plan (1) Sepsis Code(s): A41.9 - SEPSIS, UNSPECIFIED ORGANISM Status: Acute Qualifiers: Sepsis type: sepsis due to unspecified organism Qualified Code(s): A41.9 - Sepsis, unspecified organism (2) Hypothermia Code(s): T68.XXXA - HYPOTHERMIA, INITIAL ENCOUNTER Status: Resolved Qualifiers: Encounter type: subsequent encounter Qualified Code(s): T68.XXXD - Hypothermia, subsequent encounter (3) metastatic colon cancer Status: Chronic Comment: to liver and lungs (4) Chronic anemia Code(s): D64.9 - ANEMIA, UNSPECIFIED Status: Chronic (5) Bipolar disorder Code(s): F31.9 - BIPOLAR DISORDER, UNSPECIFIED Status: Chronic Qualifiers: Active/Remission status: in remission of unspecified degree Qualified Code( s): F31.70 - Bipolar disorder, currently in remission, most recent episode unspecified - Plan change solumedrol to oral prednisone, not much change in BP -: ?relative adre insuff -: blood cs are -ve, is on vanc and zosyn -: continue naprosyn, outpt antibiotics per advice -: wbc is down to 9k, temp and bp are stable * . Review of Systems - Medications/Allergies Allergies/Adverse Reactions: Allergies Allergy/AdvReac Type Severity Reaction Status Date / Time No Known Drug Allergies Allergy Verified 08/04/17 10:18 Medications: Current Medications Acetaminophen (Tylenol) 650 mg PO Q4H PRN PRN Reason: Headache/Fever or Pain Last Admin: 08/19/17 13:11 Dose: 650 mg Alprazolam (Xanax) 1 mg PO TID [facility] Last Admin: 08/20/17 09:21 Dose: Not Given Citalopram Hydrobromide (Celexa) 20 mg PO HS [facility] Last Admin: 08/19/17 20:42 Dose: 20 mg Enoxaparin Sodium (Lovenox) 40 mg SC 0900 [facility] Last Admin: 08/20/17 09:21 Dose: Not Given Famotidine (Pepcid) 20 mg PO BID [facility] Last Admin: 08/20/17 09:28 Dose: 20 mg Glucagon (Glucagon) 1 mg IM PRN PRN PRN Reason: Hypoglycemia Guaifenesin/Dextromethorphan (Robitussin Dm) 15 ml PO Q4H PRN PRN Reason: Cough Last Admin: 08/20/17 00:06 Dose: 7.5 ml Sodium Chloride (Normal Saline 0.9%) 1,000 mls @ 60 mls/hr IV .[id number] [facility] Last Admin: 08/20/17 09:32 Dose: 1,000 mls Piperacillin Sod/Tazobactam (Sod 4.5 gm/ Sodium Chloride) 100 mls @ 200 mls/hr IVPB Q6HR [facility] Last Admin: 08/20/17 05:58 Dose: 100 mls Vancomycin HCl 1 gm/ Device 200 mls @ 200 mls/hr IVPB Q12HR [facility] Last Admin: 08/20/17 09:28 Dose: 200 mls Miscellaneous Medication (Pharmacy To Dose) 1 each IVPB PRN PRN PRN Reason: SEPSIS Morphine Sulfate (Morphine) 2 mg SLOW IVP Q4H PRN PRN Reason: Chest Pain/BP Elevations Naproxen (Naprosyn) 250 mg PO BID [facility] Last Admin: 08/20/17 09:35 Dose: 250 mg Prednisone (Prednisone) 5 mg PO QAM-WM [facility] Stop: 08/22/17 08:01 Senna (Senokot) 2 tab PO HSPRN PRN PRN Reason: Constipation Last Admin: 08/18/17 12:04 Dose: 2 tab Sodium Chloride (Flush - Normal Saline) 10 ml IVF Q12HR [facility] Last Admin: 08/20/17 09:28 Dose: 10 ml Sodium Chloride (Flush - Normal Saline) 10 ml IVF PRN PRN PRN Reason: Saline Flush Tramadol HCl (Ultram) 50 mg PO QIDPRN PRN PRN Reason: Pain
[2017-08-20 10:01] LABS: Band 22 % (5-11); Hypochromia SLIGHT = 6-15 cells (100X) (0-5/hpf); Lymphocytes 6 % (21-51); MDiff Complete? YES; Neutrophil 72 % (42-75); PLT Morphology Comment Appears Adequate; Polychromasia SLIGHT = 2-3 cells (100X) (0-2/hpf)
[2017-08-20 10:06] LABS: Anion Gap 12 mmol/L (10-20); BUN (Urea Nitrogen) 18 mg/dL (7.0-18.7); Calc. Creatinine Clearance 114 mL/min (70-130); Calcium 8.9 mg/dL (7.8-10.44); Carbon Dioxide 22 mmol/L (22-29); Chloride 108 mmol/L (98-107); Estimated GFR-MDRD Greater than 90; Glucose 195 mg/dL (70-105); Potassium 4.3 mmol/L (3.5-5.1); Sodium 138 mmol/L (136-145)
[2017-08-20] MEDS: Citalopram 20 MG TAB PO SCH (22:03)
[2017-08-21 04:46] LABS: #Lymphocytes 0.9 thou/uL (1.20-3.40); #Monocytes 0.2 thou/uL (0.11-0.59); #Neutrophils 6.9 thou/uL (1.40-6.50); %Basophils 0.2 % (0.0-1.0); %Lymphocytes 11.5 % (21.0-51.0); %Monocytes 2.8 % (0.0-10.0); %Neutrophils 85.4 % (42.0-75.0); Hemoglobin 9.1 g/dL (12.0-16.0); Mean Corpuscular Hemoglobin 29.8 pg (27.0-31.0); Mean Corpuscular Volume 96.3 fl (81.0-99.0); Mean Platelet Volume 7.4 fL (7.4-10.4); Platelet Count 236 thou/uL (130-400); RBC Distribution Width 18.7 % (11.5-14.5); Red Blood Cell (RBC) Count 3.05 mill/uL (4.20-5.40); White Blood Cell (WBC) Count 8.1 thou/uL (4.8-10.8)
[2017-08-21 05:07] LABS: Anion Gap 9 mmol/L (10-20); BUN (Urea Nitrogen) 18 mg/dL (7.0-18.7); Calc. Creatinine Clearance 134 mL/min (70-130); Calcium 8.6 mg/dL (7.8-10.44); Carbon Dioxide 23 mmol/L (22-29); Chloride 109 mmol/L (98-107); Estimated GFR-MDRD Greater than 90; Glucose 119 mg/dL (70-105); Potassium 4.5 mmol/L (3.5-5.1); Sodium 136 mmol/L (136-145)
[2017-08-21] MEDS: Piperacillin/Tazobactam 4.5 GM in Sodium Chloride 0.9% 100 ML IVPB SCH ×2 (05:37→12:21)
[2017-08-21] MEDS: predniSONE 5 MG TAB PO SCH (08:05)
[2017-08-21 08:48] LABS: Vancomycin, Trough 15.7 ug/mL
--- NOTE | 2017-08-21 09:00 | PDOC.PN ---
- Subjective Encounter Start Date: 08/21/17 Encounter Start Time: 14:00 Subjective: Patient with continued sweats but no fever. Feeling a bit better. - Objective Resuscitation Status: Resuscitation Status FULL:Full Resuscitation MAR Reviewed: Yes Vital Signs & Weight: Vital Signs (12 hours) Temp Pulse Resp BP BP Pulse Ox 08/21/17 07:28 97.4 F L 62 16 118/69 98 08/21/17 03:39 97.4 F L 56 L 16 99/62 95 08/20/17 23:39 97.8 F 66 12 95/59 L 96 Weight Weight 159 lb 9.835 oz I&O: 08/20/17 08/21/17 08/22/17 06:59 06:59 06:59 Intake Total 3180 3000 430 Balance 3180 3000 430 Result Diagrams: 08/21/17 04:30 08/21/17 04:30 Phys Exam - Physical Examination Constitutional: NAD HEENT: moist MMs Respiratory: no wheezing, no rales, no rhonchi Cardiovascular: RRR, no significant murmur Gastrointestinal: soft, non-tender, positive bowel sounds Neurological: non-focal, moves all 4 limbs Psychiatric: normal affect, A&O x 3 Dx/Plan (1) Sepsis Code(s): A41.9 - SEPSIS, UNSPECIFIED ORGANISM Status: Acute Qualifiers: Sepsis type: sepsis due to unspecified organism Qualified Code(s): A41.9 - Sepsis, unspecified organism Comment: Leukocytosis resolved, blood cultures negative, on Zosyn and Vanc day # 5 (2) Hypothermia Code(s): T68.XXXA - HYPOTHERMIA, INITIAL ENCOUNTER Status: Resolved Qualifiers: Encounter type: subsequent encounter Qualified Code(s): T68.XXXD - Hypothermia, subsequent encounter (3) Hypotension Status: Resolved Comment: ? relative adrenal insufficiency, on oral steroids now (4) metastatic colon cancer Status: Chronic Comment: to liver and lungs (5) Chronic anemia Code(s): D64.9 - ANEMIA, UNSPECIFIED Status: Chronic (6) Bipolar disorder Code(s): F31.9 - BIPOLAR DISORDER, UNSPECIFIED Status: Chronic Qualifiers: Active/Remission status: in remission of unspecified degree Qualified Code( s): F31.70 - Bipolar disorder, currently in remission, most recent episode unspecified - Plan cont current plan of care, continue antibiotics O/P abx recs per Dr. Hahn -: Heme/Onc consult still pending * . - Discharge Day Encounter end time: 14:20
[2017-08-21] MEDS: Naproxen 500 MG TAB PO SCH ×2 (09:40→20:33)
[2017-08-21] MEDS: Famotidine 20 MG TAB PO SCH ×2 (09:42→20:34)
[2017-08-21] MEDS: Vancomycin HCl 1 GM in Premix Bag 1 BAG IVPB SCH (09:46)
[2017-08-21] MEDS: Enoxaparin Sodium 40 MG/0.4 ML SYRINGE SC SCH (10:08)
[2017-08-21] MEDS: ALPRAZolam 0.5 MG TAB PO SCH ×3 (10:08→20:36)
--- NOTE | 2017-08-21 17:31 | PRG ---
DATE OF SERVICE: 08/22/2017 SUBJECTIVE: No headaches. No shortness of breath or chest pain, no abdominal pain, no diarrhea. OBJECTIVE: VITAL SIGNS: T-max 97.4. Other vital signs are normal. GENERAL: He is chronically ill, but in no acute distress. LUNGS: Symmetric air entry. HEART: S1, S2, regular rate. ABDOMEN: Soft, not distended. EXTREMITIES: Moves all extremities. LABORATORY DATA: White cell count 8.1, hemoglobin 9.1, platelets 236. Sodium 136, creatinine 0.58. Microbiology with negative blood cultures final result. ASSESSMENT AND DISCUSSION: Metastatic colon cancer to lungs and liver with a recent admission with f ever, felt to be secondary to paraneoplastic fever, which resolved after naproxen. Subsequently, the patient received a new chemotherapeutic agent with development of hypothermia, leukocytosis, and hyp otension. Blood cultures negative. I believe that the changes were not due to an infectious process and potentially related to the new chemotherapeutic agent. We would advise discharge planning. 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
[2017-08-21] MEDS: Citalopram 20 MG TAB PO SCH (20:34)
[2017-08-21] MEDS: Acetaminophen 325 MG TAB PO PRN (21:01)
[2017-08-22 07:52] VITALS: TEMP 97.6
[2017-08-22] MEDS: Famotidine 20 MG TAB PO SCH (08:39)
[2017-08-22] MEDS: Naproxen 500 MG TAB PO SCH (08:39)
[2017-08-22] MEDS: predniSONE 5 MG TAB PO SCH (08:39)
[2017-08-22] MEDS: ALPRAZolam 0.5 MG TAB PO SCH (09:19)
[2017-08-22] MEDS: Enoxaparin Sodium 40 MG/0.4 ML SYRINGE SC SCH (09:19)
[2017-08-22 11:57] VITALS: BP 102/55
--- NOTE | 2017-08-23 03:56 | DIS ---
DATE OF ADMISSION: 08/17/2017 DATE OF DISCHARGE: 08/22/2017 PRIMARY CARE PHYSICIAN: Cornelius Escalera M.D. PRIMARY ONCOLOGIST: Dr. Kina Pendleton. DISCHARGE DIAGNOSES: 1. Sepsis. 2. Febrile illness likely due to paraneoplastic fever versus new chemotherapeutic agent, resolved. 3. History of metastatic colon cancer to lungs and liver. 4. Hypothermia secondary to sepsis, resolved. 5. Hypertension secondary to sepsis, resolved. 6. Chronic anemia. 7. History of bipolar disorder. DISCHARGE MEDICATIONS: Remain the same as THE admission medication. Antibiotics were started and st opped while in the hospital. Home medications as follows: Vitamin D3 of 4000 units daily, Xanax 1 m g daily, Celexa 20 mg daily, naproxen 250 mg p.o. b.i.d., famotidine 20 mg b.i.d., and tramadol 50 mg q.i.d. p.r.n. INHOUSE CONSULTATIONS: Infectious disease, Dr. Hahn. PROCEDURES IN THE HOSPITAL: 1. Include chest x-ray upon presentation, which shows concerns for metastatic disease in the lungs. 2. Ultrasound of bilateral legs, which is negative for any DVT. HISTORY OF PRESENTING ILLNESS: Ms. Lugo is a pleasant 47-year-old female with history of metastatic colon cancer to liver and lungs as well as history of ovarian cancer with total abdominal hysterectom y and bilateral salpingo-oophorectomy, and rectosigmoid colon resection with colostomy in 2017: who p resented to the emergency room with complaints of fever, chills, cough, shortness of breath, and swea ting. The patient's family noticed that she was lethargic and cold. Upon arrival to the ER, she was hypothermic with a temperature of 94.2 and WBC count of 17, and lactic acid of 2.6. She was started on new chemotherapeutic agent a day prior to presentation and is also on chemotherapy via the [facility]. Initial x-ray was unremarkable except for the metastatic disease. Her rest of further workup sh owed CEA levels of 1239. LDH was 680. AST 58, ALT 33, alkaline phosphatase 271, total bilirubin of 0.7. She was admitted to oncology floor with possible sepsis and cultures were drawn and she was sta rted on empiric IV antibiotics and IV fluids. Infectious Disease and Oncology were consulted. HOSPITAL COURSE: The patient was continued on empiric IV antibiotics and was seen by Dr. Hahn. Dr. Hahn' recommendation was that the patient has recent extensive workup for the fever, which was nega tive. His opinion was that this is most likely paraneoplastic fever, which has been helped after she was started on naproxen in the outpatient setting as well. Either that or this fever was secondary to the new chemotherapeutic agent. Thromboembolism was also ruled out by negative lower extremity ul trasound. He eventually recommended discontinuation of antibiotics and the patient actually did very well and was afebrile. Her hypothermia also corrected quickly and her blood pressure also improved. Dr. Pendleton also followed the patient along, and she was cleared for discharge this morning. Her W BC count did come back down to normal at 8.1 prior to discharge. Her rest of the workup was unremark able including blood cultures x2. PHYSICAL EXAMINATION: She was seen and examined prior to discharge. Her physical examination this m orning include, VITAL SIGNS: Temperature 97.6, pulse of 88, respirations 18, saturating 99% on room air, blood press ure 102/55. GENERAL: No acute distress. She is lying comfortably in bed, is awake, alert, oriented x3. CHEST: Clear to auscultation without any wheezing, rales, or rhonchi. HEART: Rate and rhythm is regular without any murmur, rubs, or gallops. ABDOMEN: Soft, nontender, nondistended with positive bowel sounds. Discharge planning was discussed with the patient and her mother present in the room. Home health wa s offered to them, but they declined it at this time. They will follow up with Oncology as well as [facility] physician in 7-10 days. All questions were answered. Total time spent in the discharge of this patient 33 minutes.
== END 2017-08-22 13:27 | disposition home or self-care (01) | DRG 872 ==
LOC: ERS 03:19 → T4-B 04:43 → ONC 19:53
PROVIDERS: ADMIT Internal Medicine; ATTEND Internal Medicine
DX: A41.9 Sepsis, unspecified organism (principal); C78.5 Secondary malignant neoplasm of large intestine and rectum; C78.7 Secondary malignant neoplasm of liver and intrahepatic bile duct; C78.00 Secondary malignant neoplasm of unspecified lung; T68.XXXA Hypothermia, initial encounter; F31.9 Bipolar disorder, unspecified; D63.8 Anemia in other chronic diseases classified elsewhere; Z85.43 Personal history of malignant neoplasm of ovary; I10 Essential (primary) hypertension; T45.1X5A Adverse effect of antineoplastic and immunosuppressive drugs, initial encounter; R50.2 Drug induced fever
CPT/HCPCS: 36415; 36416; 71045; 80048; 80053; 80202; 80400; 82533; 83605; 85025; 87040; 93005; 93970; 96361; 96365; 96368; A4216; J0692; J0834; J1642; J1650; J1956; J2543; J2920; J3370; J7050

== ENCOUNTER 2018-01-01 09:05 | Day surgery (SDC) | payer OTHER ==
[2017-12-29 11:21] VITALS: BMI 36.1
[~2018-01-01 09:05] MED LIST: Prevnar 13-Val Conj/PF 0.5 ML SYRINGE IM ONE
[2018-01-01 09:34] LABS: INR-International Normal Ratio 1.1; PTT 33.4 SEC (22.9-36.1); Prothrombin Time 14.1 SEC (12.0-14.7)
[2018-01-01] MEDS ORDERED: Sodium Bicarbonate 2.5 MEQ/5 ML VIAL ONE (09:59)
[2018-01-01] MEDS ORDERED: Lidocaine 1% PF 5 ML VIAL ONE (09:59)
[2018-01-01 11:34] VITALS: BP 107/66; TEMP 99
--- NOTE | 2018-01-01 13:21 | ULT ---
ULTRASOUND GUIDED PARACENTESIS: HISTORY: History of ascites. COMPARISON: None. FINDINGS: Targeted imaging of all 4 quadrants was performed. The right lower quadrant is deemed appropriate. Successful ultrasound-guided paracentesis. A total of 1.1 liters of yellow-colored ascites is aspira yumiko. There are no immediate or postprocedure complications. TECHNIQUE: Consent was obtained to perform an ultrasound-guided paracentesis. The patient's abdomen was evaluat ed. The right lower quadrant was deemed appropriate. The skin was prepped and draped in sterile fas hion. 1% Lidocaine, buffered with sodium bicarbonate, was used for local anesthesia. Under ultrasou nd guidance, a 5 [place]ese 7 cm Yueh catheter was advanced into the peritoneal space. Via vacuum bottle s, a total of 1.1 liters of yellow-colored ascites was aspirated. The patient tolerated the procedur e well. No immediate or postprocedure complications. IMPRESSION: Successful ultrasound-guided paracentesis. POS: [facility]
== END 2018-01-01 11:05 | disposition home or self-care (01) ==
LOC: ULT 09:05
PROVIDERS: ATTEND Internal Medicine Hematology & Oncology
PROC: 0W9G3ZZ Drainage of Peritoneal Cavity, Percutaneous Approach (ICD-10-PCS; principal; 2018-01-01)
PROC: BW40ZZZ Ultrasonography of Abdomen (ICD-10-PCS; principal; 2018-01-01)
DX: R18.8 Other ascites (principal); C18.7 Malignant neoplasm of sigmoid colon; C78.6 Secondary malignant neoplasm of retroperitoneum and peritoneum; F41.9 Anxiety disorder, unspecified; F42.9 Obsessive-compulsive disorder, unspecified; C78.00 Secondary malignant neoplasm of unspecified lung; Z79.899 Other long term (current) drug therapy; Z98.890 Other specified postprocedural states; Z90.49 Acquired absence of other specified parts of digestive tract; Z93.3 Colostomy status
CPT/HCPCS: 36415; 49083; 85610; 85730; 90471; 90670; 90686; G0008; G0009; J2001

== ENCOUNTER 2018-01-14 15:09 | Emergency (ER) | payer BC, SELFPAY ==
[2018-01-14 16:39] LABS: Hemoglobin 9.7 g/dL (12.0-16.0); Mean Corpuscular HGB CONC 31.5 g/dL (32.0-36.0); Mean Corpuscular Volume 98.5 fL (78.0-98.0); Mean Platelet Volume 7.1 fL (7.4-10.4); Platelet Count 115 thou/uL (130-400); RBC Distribution Width 16.2 % (11.5-14.5); Red Blood Cell (RBC) Count 3.11 mill/uL (4.20-5.40); White Blood Cell (WBC) Count 4.4 thou/uL (4.8-10.8)
[2018-01-14 16:42] LABS: ALT (SGPT) 62 U/L (8-55); AST (SGOT) 144 U/L (5-34); Albumin 2.3 g/dL (3.5-5.0); Alkaline Phosphatase 619 U/L (40-150); Anion Gap 14 mmol/L (10-20); BUN (Urea Nitrogen) 17 mg/dL (7.0-18.7); Calc. Creatinine Clearance 0 mL/min (70-130); Calcium 8.6 mg/dL (7.8-10.44); Carbon Dioxide 27 mmol/L (22-29); Chloride 104 mmol/L (98-107); Estimated GFR-MDRD Greater than 90; Globulin 4.2 g/dL (2.4-3.5); Glucose 82 mg/dL (70-105); Lipase 19 U/L (8-78); Potassium 3.6 mmol/L (3.5-5.1); Protein, Total 6.5 g/dL (6.0-8.3); Sodium 141 mmol/L (136-145)
[2018-01-14 16:50] LABS: #Eosinphils 0.1 thou/uL (0.0-0.7); #Lymphocytes 0.9 thou/uL (1.20-3.40); #Monocytes 0.1 thou/uL (0.11-0.59); #Neutrophils 3.3 thou/uL (1.40-6.50); %Basophils 0.7 % (0.0-1.0); %Lymphocytes 20.4 % (21.0-51.0); %Neutrophils 74.9 % (42.0-75.0); Anisocytosis SLIGHT = 6-15 cells (100X) (0-5/hpf); Eosinophils 2 % (0-10); Hypochromia SLIGHT = 6-15 cells (100X) (0-5/hpf); Lymphocytes 19 % (21-51); MDiff Complete? YES; Monocytes 3 % (0-10); Neutrophil 75 % (42-75); Ovalocytes SLIGHT = 2-5 cells (100X) (0-1/hpf); PLT Morphology Comment Appears Decreased; Polychromasia SLIGHT = 2-3 cells (100X) (0-2/hpf); Schistocytes SLIGHT = 2-5 cells (100X) (0-1/hpf); Target Cells SLIGHT = 2-5 cells (100X) (0-1/hpf); Tear Drops SLIGHT = 2-5 cells (100X) (0-1/hpf)
--- NOTE | 2018-01-14 17:02 | RAD ---
CHEST TWO VIEWS: 01/14/2018 HISTORY: Cough. COMPARISON: 08/04/2017 FINDINGS: Two views of the chest demonstrate a left subclavian Mediport catheter in place. Previously noted no dular density in the left lung base has nearly resolved. A second nodular density in the left lower lobe also persists, but has not significantly changed. No newly developed lung parenchymal lesion is seen. No obvious osseous lesion is seen. No evidence of pleural effusion is seen. No significant evidence of mediastinal or hilar lymphadenopathy is seen. IMPRESSION: Persistent more medial left lower lobe nodule and second less visible left lower lobe nodule. No oth er acute abnormalities seen. No other significant interval changes noted. POS: [facility]
== END 2018-01-14 17:28 | disposition home or self-care (01) ==
LOC: SCSER 15:09
DX: R05 Cough (principal); F41.9 Anxiety disorder, unspecified; F32.9 Major depressive disorder, single episode, unspecified; F42.9 Obsessive-compulsive disorder, unspecified; R63.0 Anorexia; C56.9 Malignant neoplasm of unspecified ovary; C78.7 Secondary malignant neoplasm of liver and intrahepatic bile duct; C78.00 Secondary malignant neoplasm of unspecified lung; Z93.3 Colostomy status; Z79.899 Other long term (current) drug therapy
CPT/HCPCS: 71046; 80053; 83605; 83690; 85025; 87040

== ENCOUNTER 2018-02-06 10:04 | Outpatient (CLI) | payer OTHER ==
--- NOTE | 2018-02-07 09:47 | PET ---
Add to impression: Next #: Multiple bilateral non-hypermetabolic pulmonary nodules. Of the 2 largest in the left lower lobe, on e appears slightly increased in size while the other appears to have slightly decreased in size. The rest are unchanged. POS: [facility]
--- NOTE | 2018-02-08 07:23 | PET ---
NUCLEAR MEDICINE FDG PET CT: (Positron Emission Tomography) DATE: 02/06/2018. HISTORY: A 47-year-old female with metastatic colorectal cancer. Restaging. COMPARISON: 06/08/2017. TECHNIQUE: IV injection F-18 Fluorodeoxyglucose (FDG) dose: 11.0 mCi. PET and attenuation-correction CT performed from skull base to proximal thighs. FINDINGS: SUV (standard uptake value) numbers given are QCLR maximum SUV's: No suspicious hypermetabolic activity in the neck. Multiple non-hypermetabolic pulmonary nodules. The largest was at the lateral base of the left lower lobe, and previously measured approximately 1.5 x 1 cm. It currently measures 1.2 x 0.8 cm. Medial and slightly inferior to that, there was an approximately 1 x 0.9 cm nodule which currently me asures 1.5 x 1 cm, at the base of the left lower lobe. These apparently different measurements could be due to technical differences. Multiple other small bilateral pulmonary nodules are essentially unchanged. No hypermetabolic mediastinal or hilar lymphadenopathy. Much greater degree of edema throughout the subcutaneous fat circumferentially around the abdomen and pelvis, and to a lesser degree the chest. Another new finding of moderate to large volume of free intraperitoneal fluid throughout the abdomina l cavity and pelvic cavity. Calcified gallstones are again demonstrated. Previously, there was extensive heterogeneously distributed hypermetabolic activity throughout much o f the liver. This has become worse, and more extensive. Worst SUV is 12.5. New finding of lobulati on of hepatic margins, especially of the right lobe. On the attenuation correction noncontrast CT, t here are patchy new ill-defined regions of moderately hyperdensity in the liver parenchyma, questiona ble for faint calcifications. There are also new small bilateral pleural effusions. No hypermetabol ic mesenteric, whitley hepatis, or retroperitoneal lymph nodes. Left lower quadrant colostomy again noted. The soft tissue density mass at the Palacios's pouch has b ecome much larger and more hypermetabolic, with SUV up to 23.6. There is a new finding of left hydro ureteronephrosis. No hypermetabolic iliac chain lymphadenopathy. IMPRESSION: 1. Evidence for interval worsening ore current or residual tumor at Palacios's pouch, now causing lef t obstructive uropathy: left hydronephrosis. 2. Worsening of very extensive, severe hepatic metastatic disease. 3. New finding of moderate to large volume of ascites, anasarca, and small bilateral pleural effusio ns. 4. Cholelithiasis. 5. Multiple bilateral non-hypermetabolic pulmonary nodules. JOSE Perez POS: ROSIE
== END 2018-02-06 10:05 | disposition home or self-care (01) ==
LOC: PET 10:04
PROVIDERS: ATTEND Internal Medicine Hematology & Oncology
DX: C18.9 Malignant neoplasm of colon, unspecified (principal); C78.6 Secondary malignant neoplasm of retroperitoneum and peritoneum; R91.8 Other nonspecific abnormal finding of lung field
CPT/HCPCS: 78815; A9552

== ENCOUNTER → 2018-02-09 | Day surgery (SDC) | payer OTHER ==
[~2018-02-09] MED LIST changes: -Prevnar 13-Val Conj/PF 0.5 ML SYRINGE IM ONE; +Sodium Bicarbonate 2.5 MEQ/5 ML VIAL ONE
[2018-02-09 10:11] LABS: INR-International Normal Ratio 1.4
[2018-02-09 10:12] LABS: PTT 35.2 SEC (22.9-36.1)
[2018-02-09 11:57] VITALS: BMI 36.6
--- NOTE | 2018-02-09 13:39 | ULT ---
ULTRASOUND GUIDED PARACENTESIS: DATE: 02/09/2018. HISTORY: A 47-year-old female with symptomatic ascites and history of colon cancer. FINDINGS: Informed consent for ultrasound-guided paracentesis obtained prior to the procedure. Preprocedural imaging demonstrates significant ascites throughout the abdomen/pelvis with an appropri ate pocket for access in the right lower quadrant. The skin overlying this was prepped and draped in normal sterile fashion and anesthetized with 1% buffered Lidocaine. With direct sonographic guidance, a 5 [place] GateGurueh catheter is advanced into the ascites and removal o f the stylette yields yellow/greenish fluid. 3600 cc were removed. The patient tolerated the proced ure well. IMPRESSION: Successful ultrasound-guided paracentesis yielding 3600 cc as above. POS: ROSIE
== END ==
LOC: ULT 09:22
PROVIDERS: ATTEND Internal Medicine Hematology & Oncology
PROC: 0W9G3ZZ Drainage of Peritoneal Cavity, Percutaneous Approach (ICD-10-PCS; principal; 2018-02-09)
PROC: BW40ZZZ Ultrasonography of Abdomen (ICD-10-PCS; principal; 2018-02-09)
DX: R18.8 Other ascites (principal); C18.7 Malignant neoplasm of sigmoid colon; C78.6 Secondary malignant neoplasm of retroperitoneum and peritoneum; C78.00 Secondary malignant neoplasm of unspecified lung; F41.9 Anxiety disorder, unspecified; F42.9 Obsessive-compulsive disorder, unspecified; Z79.899 Other long term (current) drug therapy; Z90.49 Acquired absence of other specified parts of digestive tract
CPT/HCPCS: 36415; 49083